=== PATIENT | female | born 1940 | race African-American/Black ===

== ENCOUNTER 2017-05-23 08:20 | Emergency (ER) | payer MEDICARE, OTHER ==
[~2017-05-23] VITALS: Ht 167.6 cm; Wt 100.0 kg
[~2017-05-23 08:20] MED LIST: AMLO-512 PO; ASPI-556 PO; ATOR40TA71 PO; CLON-570 PO; GLIP5 PO; LABE100 PO; LOSA50TA37 PO; MULT-12 PO; OMEP20CA10 PO
[2017-05-23 08:37] LABS: GLUCOSE,POINT OF CARE 120 MG/DL (70-110)
[2017-05-23 09:21] LABS: INFLUENZA TYPE B NEGATIVE FOR TYPE B (NEGATIVE)
[2017-05-23 11:49] VITALS: BP 186/82
== END 2017-05-23 11:57 | disposition home or self-care (01) ==
LOC: EMS 08:21
DX: J40 Bronchitis, not specified as acute or chronic (principal); E11.9 Type 2 diabetes mellitus without complications; I10 Essential (primary) hypertension; K21.9 Gastro-esophageal reflux disease without esophagitis; Z88.2 Allergy status to sulfonamides
CPT/HCPCS: 82962; 87804; 99285

== ENCOUNTER 2019-06-06 16:24 | Inpatient (IN) | payer MEDICARE, OTHER ==
[~2019-06-06] VITALS: Ht 167.6 cm; Wt 99.8 kg
[~2019-06-06 16:24] MED LIST changes: -AMLO-512 PO; +AMLO10TA7 PO; +AMOX1TAB16 PO; +CALC60CR5 TP; -CLON-570 PO; +DICY10 PO; +DOCU100C33 PO; +FERR325T22 PO; +FURO40 PO; -GLIP5 PO; +HYDR-2924 PO; +INS7030 SQ; -LABE100 PO; +LABE100T8 PO; +LOSA-88 PO; -LOSA50TA37 PO; +NIFE-39 PO; -OMEP20CA10 PO; +ONDA-104 PO; +OXYB5 PO; +PANT40TA25 PO; +PREG75 PO; +SODI650T PO; +TRAM50TA4 PO
[2019-06-06] MEDS ORDERED: DEXTROSE 50%-WATER 25 GM/50 ML SYRINGE IVP PRN (17:00)
[2019-06-06] MEDS: ONDANSETRON HCL 4 MG/2 ML VIAL IVP PRN (18:05)
[2019-06-06] MEDS: ALBUTEROL SULFATE 2.5 MG/0.5 ML NEB SOLUTION NEB PRN (19:19)
[2019-06-06] MEDS: IPRATROPIUM BROMIDE 0.5 MG/2.5 ML NEB SOLUTION NEB PRN (19:19)
[2019-06-06 19:22] VITALS: BP 133/58
[2019-06-06] MEDS ORDERED: SODIUM CHLORIDE 0.9% 0 ML IV ONE (19:26)
[2019-06-06 19:28] LABS: GLUCOMETER DEV NAME(LOC) 2WR.1C; GLUCOSE,POINT OF CARE 128 MG/DL (70-110)
[2019-06-06] MEDS ORDERED: PNEUMOCOCCAL VACCINE POLYVALENT 0.5 ML VIAL [PPSV23] IM ONE (19:30)
[2019-06-06] MEDS: GuaiFENesin/D-METHORPHAN [SUGAR-FREE] 200-20MG/10 ML SYRUP UDCUP PO PRN (19:46)
[2019-06-06] MEDS: OXYGEN THERAPY IH SCH (20:54)
[2019-06-06] MEDS: LABETALOL HCL 100 MG TABLET PO SCH (21:00)
[2019-06-06] MEDS ORDERED: HydrALAZINE HCL 50 MG TABLET PO SCH (21:00)
[2019-06-06] MEDS: OMEPRAZOLE 20 MG CAPSULE PO SCH (21:06)
[2019-06-06] MEDS: NIFEdipine 60 MG ER TABLET PO SCH (21:06)
[2019-06-06] MEDS: SODIUM BICARBONATE 650 MG TABLET PO SCH (21:06)
[2019-06-06] MEDS: ATORVASTATIN CALCIUM 40 MG TABLET PO SCH (21:06)
[2019-06-06] MEDS: FUROSEMIDE 40 MG TABLET PO SCH (21:07)
[2019-06-06] MEDS: DICYCLOMINE HCL 10 MG CAPSULE PO SCH (21:07)
[2019-06-06] MEDS: SENNA 187 MG TABLET PO SCH (21:07)
[2019-06-06] MEDS: DOCUSATE SODIUM 100 MG CAPSULE PO SCH (21:07)
[2019-06-06] MEDS: HEPARIN SODIUM,PORCINE 5,000 UNITS/ML VIAL SQ SCH (21:12)
[2019-06-06] MEDS: INSULIN HUMAN NPH-REGULAR 70/30 100 UNITS/ML SQ SCH (21:32)
[2019-06-06 22:07] LABS: GLUCOMETER DEV NAME(LOC) 2WR.1C; GLUCOSE,POINT OF CARE 155 MG/DL (70-110)
[2019-06-06] MEDS: 0.9% SODIUM CHLORIDE 10 ML SYRINGE IVP SCH (23:02)
[2019-06-06 23:11] VITALS: BP 150/73
[2019-06-06] MEDS: ACETAMINOPHEN 325 MG TABLET PO PRN (23:11)
[2019-06-07] MEDS: GuaiFENesin/D-METHORPHAN [SUGAR-FREE] 200-20MG/10 ML SYRUP UDCUP PO PRN (05:47)
[2019-06-07 06:01] LABS: GLUCOMETER DEV NAME(LOC) 2WR.2; GLUCOSE,POINT OF CARE 89 MG/DL (70-110)
[2019-06-07] MEDS: ONDANSETRON HCL 4 MG/2 ML VIAL IVP PRN ×3 (07:24→21:24)
[2019-06-07 07:27] LABS: BASOPHILS % (AUTO) 0.4 % (0.0-2.0); EOSINOPHILS % (AUTO) 2.2 % (1.0-6.0); HEMATOCRIT 24.2 % (36-46); HEMOGLOBIN 8.1 g/dL (12.0-16.0); LYMPHOCYTES # (AUTO) 0.7 K/uL (1.0-4.8); LYMPHOCYTES % (AUTO) 7.8 % (22.0-44.0); MEAN CORPUSCULAR HEMOGLOBIN 28.7 pg (26.0-34.0); MEAN CORPUSCULAR HGB CONC 33.6 G/dL (31.0-37.0); MEAN CORPUSCULAR VOLUME 85 fL (80-100); MONOCYTES # (AUTO) 1.1 K/uL (0.1-1.0); MONOCYTES % (AUTO) 13.1 % (2.0-9.0); NEUTROPHILS # (AUTO) 6.5 K/uL (1.8-7.7); NEUTROPHILS % (AUTO) 76.5 % (40.0-70.0); PLATELET COUNT (AUTO) 322 K/uL (150-450); RED BLOOD CELL COUNT(AUTO) 2.83 MIL/uL (4.00-5.20); RED CELL DISTRIBUTION WIDTH 14.2 % (11.5-14.5)
[2019-06-07 07:36] VITALS: BP 136/84
[2019-06-07] MEDS: ACETAMINOPHEN 325 MG TABLET PO PRN ×2 (07:36→23:40)
[2019-06-07 07:47] LABS: ALBUMIN 2.6 g/dL (3.4-5.0); BILIRUBIN,TOTAL 0.3 mg/dL (0.1-1.0); CALCIUM, TOTAL 8.5 mg/dL (8.8-10.5); CREATININE 2.07 mg/dL (0.60-1.30); POTASSIUM 4.8 mmol/L (3.5-5.1); TOTAL PROTEIN, SERUM 6.5 g/dL (6.4-8.2)
[2019-06-07] MEDS: ALBUTEROL SULFATE 2.5 MG/0.5 ML NEB SOLUTION NEB PRN ×2 (07:50→20:37)
[2019-06-07] MEDS: IPRATROPIUM BROMIDE 0.5 MG/2.5 ML NEB SOLUTION NEB PRN ×2 (07:50→20:37)
[2019-06-07] MEDS: OXYGEN THERAPY IH SCH ×2 (08:18→21:30)
[2019-06-07] MEDS: HEPARIN SODIUM,PORCINE 5,000 UNITS/ML VIAL SQ SCH ×2 (08:18→21:30)
[2019-06-07] MEDS: HydrALAZINE HCL 25 MG TABLET PO SCH ×3 (08:19→21:29)
[2019-06-07] MEDS: ASPIRIN 81 MG CHEWABLE TABLET PO SCH (08:19)
[2019-06-07] MEDS: SODIUM BICARBONATE 650 MG TABLET PO SCH ×2 (08:19→21:29)
[2019-06-07] MEDS: FUROSEMIDE 40 MG TABLET PO SCH (08:19)
[2019-06-07] MEDS: NIFEdipine 60 MG ER TABLET PO SCH ×2 (08:19→21:29)
[2019-06-07] MEDS: DOCUSATE SODIUM 100 MG CAPSULE PO SCH ×2 (08:19→21:29)
[2019-06-07] MEDS: DICYCLOMINE HCL 10 MG CAPSULE PO SCH ×2 (08:19→13:04)
[2019-06-07] MEDS: LOSARTAN POTASSIUM 50 MG TABLET PO SCH (08:19)
[2019-06-07] MEDS: GABAPENTIN 300 MG CAPSULE PO SCH (08:19)
[2019-06-07] MEDS: 0.9% SODIUM CHLORIDE 10 ML SYRINGE IVP SCH ×3 (08:20→23:17)
[2019-06-07] MEDS: OMEPRAZOLE 20 MG CAPSULE PO SCH ×2 (08:20→21:29)
[2019-06-07] MEDS: LABETALOL HCL 100 MG TABLET PO SCH ×2 (08:22→21:29)
[2019-06-07] MEDS: INSULIN HUMAN NPH-REGULAR 70/30 100 UNITS/ML SQ SCH ×2 (08:34→21:37)
[2019-06-07 13:15] LABS: GLUCOMETER DEV NAME(LOC) 2WR.2; GLUCOSE,POINT OF CARE 66 MG/DL (70-110)
[2019-06-07] MEDS ORDERED: MAGNESIUM HYDROXIDE SUSPENSION 30 ML UDCUP PO PRN (13:15)
[2019-06-07] MEDS ORDERED: FUROSEMIDE 40 MG/4 ML VIAL IVP ONE (15:15)
[2019-06-07 15:23] VITALS: BP 154/71
[2019-06-07] MEDS ORDERED: MAGNESIUM CITRATE 300 ML ORAL SOLUTION PO ONE (16:00)
[2019-06-07 17:04] LABS: GLUCOMETER DEV NAME(LOC) 2WR.2; GLUCOSE,POINT OF CARE 120 MG/DL (70-110)
[2019-06-07] MEDS ORDERED: SODIUM CHLORIDE 0.9% 250 ML IV ONE (17:39)
[2019-06-07] MEDS ORDERED: SOD FERRIC GLUC COMPLX/SUCROSE 125 MG in SODIUM CHLORIDE 0.9% 100 ML IV SCH (18:00)
[2019-06-07 20:07] LABS: GLUCOMETER DEV NAME(LOC) 2WR.2; GLUCOSE,POINT OF CARE 151 MG/DL (70-110)
[2019-06-07 21:00] VITALS: BP 149/76
[2019-06-07] MEDS: SENNA 187 MG TABLET PO SCH (21:29)
[2019-06-07] MEDS: ATORVASTATIN CALCIUM 40 MG TABLET PO SCH (21:29)
[2019-06-07 23:18] LABS: GLUCOMETER DEV NAME(LOC) 2WR.2; GLUCOSE,POINT OF CARE 169 MG/DL (70-110)
[2019-06-07 23:28] VITALS: BP 140/71
[2019-06-07 23:50] VITALS: BP 141/71
[2019-06-08] MEDS: GuaiFENesin/D-METHORPHAN [SUGAR-FREE] 200-20MG/10 ML SYRUP UDCUP PO PRN ×2 (00:23→23:10)
[2019-06-08 06:00] VITALS: BP 128/69
[2019-06-08] MEDS: FUROSEMIDE 40 MG/4 ML VIAL IVP SCH ×2 (06:08→17:00)
[2019-06-08 06:43] LABS: GLUCOMETER DEV NAME(LOC) 2WR.2; GLUCOSE,POINT OF CARE 108 MG/DL (70-110)
[2019-06-08 07:45] VITALS: BP 133/61
[2019-06-08] MEDS: DOCUSATE SODIUM 100 MG CAPSULE PO SCH ×2 (08:25→21:10)
[2019-06-08] MEDS: LOSARTAN POTASSIUM 50 MG TABLET PO SCH (08:25)
[2019-06-08] MEDS: ASPIRIN 81 MG CHEWABLE TABLET PO SCH (08:25)
[2019-06-08] MEDS: HydrALAZINE HCL 25 MG TABLET PO SCH ×3 (08:25→21:10)
[2019-06-08] MEDS: NIFEdipine 60 MG ER TABLET PO SCH ×2 (08:25→21:11)
[2019-06-08] MEDS: SODIUM BICARBONATE 650 MG TABLET PO SCH ×2 (08:25→21:10)
[2019-06-08] MEDS: GABAPENTIN 300 MG CAPSULE PO SCH (08:25)
[2019-06-08] MEDS: LABETALOL HCL 100 MG TABLET PO SCH ×2 (08:25→21:10)
[2019-06-08] MEDS: HEPARIN SODIUM,PORCINE 5,000 UNITS/ML VIAL SQ SCH ×2 (08:26→21:10)
[2019-06-08] MEDS: INSULIN HUMAN NPH-REGULAR 70/30 100 UNITS/ML SQ SCH ×2 (08:28→21:13)
[2019-06-08] MEDS: 0.9% SODIUM CHLORIDE 10 ML SYRINGE IVP SCH ×3 (08:29→23:11)
[2019-06-08] MEDS: OXYGEN THERAPY IH SCH ×2 (08:29→22:23)
[2019-06-08] MEDS: OMEPRAZOLE 20 MG CAPSULE PO SCH ×2 (08:36→21:10)
[2019-06-08] MEDS ORDERED: EPOETIN ALFA 10,000 UNITS/ML VIAL SQ ONE (09:00)
[2019-06-08] MEDS: VITAMIN B COMP/VIT C/FOLIC ACID CAPSULE PO SCH (10:01)
[2019-06-08 11:46] LABS: BASOPHILS % (AUTO) 0.4 % (0.0-2.0); EOSINOPHILS % (AUTO) 0.4 % (1.0-6.0); HEMATOCRIT 23.1 % (36-46); HEMOGLOBIN 7.6 g/dL (12.0-16.0); LYMPHOCYTES # (AUTO) 0.4 K/uL (1.0-4.8); LYMPHOCYTES % (AUTO) 3.4 % (22.0-44.0); MEAN CORPUSCULAR HEMOGLOBIN 28.6 pg (26.0-34.0); MEAN CORPUSCULAR VOLUME 87 fL (80-100); MONOCYTES # (AUTO) 1.4 K/uL (0.1-1.0); MONOCYTES % (AUTO) 10.8 % (2.0-9.0); NEUTROPHILS # (AUTO) 11.1 K/uL (1.8-7.7); PLATELET COUNT (AUTO) 291 K/uL (150-450); RED BLOOD CELL COUNT(AUTO) 2.67 MIL/uL (4.00-5.20); RED CELL DISTRIBUTION WIDTH 14.5 % (11.5-14.5)
[2019-06-08 12:35] LABS: GLUCOMETER DEV NAME(LOC) 2WR.2; GLUCOSE,POINT OF CARE 96 MG/DL (70-110)
[2019-06-08 13:01] LABS: LACTIC ACID 0.6 mmol/L (0.4-2.0)
[2019-06-08 15:35] VITALS: BP 120/51
[2019-06-08] MEDS: ALBUTEROL SULFATE 2.5 MG/0.5 ML NEB SOLUTION NEB PRN (17:50)
[2019-06-08] MEDS: IPRATROPIUM BROMIDE 0.5 MG/2.5 ML NEB SOLUTION NEB PRN (17:50)
[2019-06-08 18:07] LABS: GLUCOMETER DEV NAME(LOC) 2WR.1C; GLUCOSE,POINT OF CARE 110 MG/DL (70-110)
[2019-06-08] MEDS: LACTULOSE 20 GM/30 ML SOLUTION UDCUP PO PRN (18:14)
[2019-06-08] MEDS: PIPERACILLIN SODIUM/TAZOBACTAM 2.25 GM in DEXTROSE 5%-WATER 50 ML IV SCH ×2 (18:28→23:11)
[2019-06-08] MEDS: ATORVASTATIN CALCIUM 40 MG TABLET PO SCH (21:10)
[2019-06-08] MEDS: SENNA 187 MG TABLET PO SCH (21:10)
[2019-06-08] MEDS: ONDANSETRON HCL 4 MG/2 ML VIAL IVP PRN (21:11)
[2019-06-08 22:09] LABS: GLUCOMETER DEV NAME(LOC) 2WR.2; GLUCOSE,POINT OF CARE 172 MG/DL (70-110)
[2019-06-08] MEDS: ACETAMINOPHEN 325 MG TABLET PO PRN (22:46)
[2019-06-08 23:46] VITALS: BP 121/62
[2019-06-09 05:00] VITALS: BP 125/60
[2019-06-09] MEDS: FUROSEMIDE 40 MG/4 ML VIAL IVP SCH (05:04)
[2019-06-09] MEDS: PIPERACILLIN SODIUM/TAZOBACTAM 2.25 GM in DEXTROSE 5%-WATER 50 ML IV SCH ×3 (05:04→18:00)
[2019-06-09 06:28] LABS: GLUCOMETER DEV NAME(LOC) 2WR.1C; GLUCOSE,POINT OF CARE 129 MG/DL (70-110)
[2019-06-09 07:03] VITALS: BP 113/59
[2019-06-09] MEDS: ACETAMINOPHEN 325 MG TABLET PO PRN ×2 (07:03→16:14)
[2019-06-09 07:53] LABS: BASOPHILS % (AUTO) 0.4 % (0.0-2.0); EOSINOPHILS % (AUTO) 1.6 % (1.0-6.0); HEMATOCRIT 22.5 % (36-46); HEMOGLOBIN 7.4 g/dL (12.0-16.0); LYMPHOCYTES # (AUTO) 0.7 K/uL (1.0-4.8); LYMPHOCYTES % (AUTO) 6.1 % (22.0-44.0); MEAN CORPUSCULAR HEMOGLOBIN 28.5 pg (26.0-34.0); MEAN CORPUSCULAR VOLUME 86 fL (80-100); MONOCYTES # (AUTO) 1.3 K/uL (0.1-1.0); MONOCYTES % (AUTO) 11.5 % (2.0-9.0); NEUTROPHILS # (AUTO) 8.8 K/uL (1.8-7.7); NEUTROPHILS % (AUTO) 80.4 % (40.0-70.0); PLATELET COUNT (AUTO) 306 K/uL (150-450); RED BLOOD CELL COUNT(AUTO) 2.61 MIL/uL (4.00-5.20); RED CELL DISTRIBUTION WIDTH 14.6 % (11.5-14.5)
[2019-06-09 08:05] LABS: CALCIUM, TOTAL 8.9 mg/dL (8.8-10.5); CREATININE 2.71 mg/dL (0.60-1.30); POTASSIUM 4.6 mmol/L (3.5-5.1)
[2019-06-09] MEDS: VITAMIN B COMP/VIT C/FOLIC ACID CAPSULE PO SCH (08:24)
[2019-06-09] MEDS: SODIUM BICARBONATE 650 MG TABLET PO SCH (08:24)
[2019-06-09] MEDS: ASPIRIN 81 MG CHEWABLE TABLET PO SCH (08:25)
[2019-06-09] MEDS: LOSARTAN POTASSIUM 50 MG TABLET PO SCH (08:25)
[2019-06-09] MEDS: DOCUSATE SODIUM 100 MG CAPSULE PO SCH ×2 (08:25→21:10)
[2019-06-09] MEDS: OMEPRAZOLE 20 MG CAPSULE PO SCH ×2 (08:25→21:10)
[2019-06-09] MEDS: LABETALOL HCL 100 MG TABLET PO SCH ×2 (08:25→21:09)
[2019-06-09] MEDS: HEPARIN SODIUM,PORCINE 5,000 UNITS/ML VIAL SQ SCH ×2 (08:26→21:11)
[2019-06-09] MEDS: INSULIN HUMAN NPH-REGULAR 70/30 100 UNITS/ML SQ SCH ×2 (08:27→21:11)
[2019-06-09] MEDS: 0.9% SODIUM CHLORIDE 10 ML SYRINGE IVP SCH ×2 (08:35→16:15)
[2019-06-09] MEDS: OXYGEN THERAPY IH SCH ×2 (08:35→19:30)
[2019-06-09] MEDS ORDERED: FUROSEMIDE 40 MG/4 ML VIAL IVP SCH (09:00)
[2019-06-09] MEDS: NIFEdipine 60 MG ER TABLET PO SCH ×2 (10:19→21:10)
[2019-06-09] MEDS: HydrALAZINE HCL 25 MG TABLET PO SCH ×3 (10:19→21:09)
[2019-06-09 10:31] VITALS: BP 132/62
[2019-06-09] MEDS: GuaiFENesin/D-METHORPHAN [SUGAR-FREE] 200-20MG/10 ML SYRUP UDCUP PO PRN ×2 (12:21→21:51)
[2019-06-09] MEDS: TraMADol HCL 50 MG TABLET PO PRN (12:42)
[2019-06-09] MEDS ORDERED: EPOETIN ALFA 10,000 UNITS/ML VIAL SQ ONE (12:45)
[2019-06-09 12:50] LABS: GLUCOMETER DEV NAME(LOC) 2WR.2; GLUCOSE,POINT OF CARE 144 MG/DL (70-110)
[2019-06-09 15:30] VITALS: BP 133/69
[2019-06-09] MEDS: BETHANECHOL CHLORIDE 10 MG TABLET PO SCH ×2 (16:15→21:10)
[2019-06-09] MEDS: SIMETHICONE 80 MG CHEWABLE TABLET CHEW PRN (17:32)
[2019-06-09 18:43] LABS: GLUCOMETER DEV NAME(LOC) 2WR.1C; GLUCOSE,POINT OF CARE 90 MG/DL (70-110)
[2019-06-09] MEDS ORDERED: 0.9% SODIUM CHLORIDE 5 ML NEB SOLUTION NEB ONE (19:24)
[2019-06-09] MEDS: IPRATROPIUM BROMIDE 0.5 MG/2.5 ML NEB SOLUTION NEB PRN (19:29)
[2019-06-09] MEDS: ALBUTEROL SULFATE 2.5 MG/0.5 ML NEB SOLUTION NEB PRN (19:29)
[2019-06-09 21:08] VITALS: BP 144/73
[2019-06-09] MEDS: TAMSULOSIN HCL 0.4 MG CAPSULE PO SCH (21:10)
[2019-06-09] MEDS: ATORVASTATIN CALCIUM 40 MG TABLET PO SCH (21:10)
[2019-06-09] MEDS: SENNA 187 MG TABLET PO SCH (21:10)
[2019-06-09] MEDS: LACTULOSE 20 GM/30 ML SOLUTION UDCUP PO PRN (21:11)
[2019-06-09 21:24] LABS: APPEARANCE,URINE TURBID (CLEAR); BILIRUBIN,URINE NEGATIVE (NEGATIVE); GLUCOSE, URINE (UA) NEGATIVE (NEGATIVE); KETONES,URINE NEGATIVE (NEGATIVE); LEUKOCYTE ESTERASE ,URINE LARGE (NEGATIVE); NITRATE,URINE NEGATIVE (NEGATIVE); OCCULT BLOOD,URINE SMALL (NEGATIVE); PH,URINE 6.5 (5.0-8.0); PROTEIN,URINE SEE CONFIRM (NEGATIVE); UROBILINOGEN,URINE 0.2 mg/dL (<=1.0)
[2019-06-09 21:31] LABS: SULFOSALICYLIC ACID,URINE 3+ (Negative); WBC,URINE >100 /HPF (0-5)
[2019-06-09 21:32] LABS: BACTERIA,URINE Moderate /HPF (None Seen); RBC,URINE 0-2 /HPF (0-2)
[2019-06-09 21:33] LABS: SQUAMOUS EPITHELIAL CELL,UR Few /LPF (None Seen)
[2019-06-09 21:41] LABS: GLUCOMETER DEV NAME(LOC) 2WR.2; GLUCOSE,POINT OF CARE 186 MG/DL (70-110)
[2019-06-10] VITALS (16 sets, daily range): BP systolic 108–178; BP diastolic 51–99
[2019-06-10] MEDS: GuaiFENesin/D-METHORPHAN [SUGAR-FREE] 200-20MG/10 ML SYRUP UDCUP PO PRN ×2 (01:45→23:58)
[2019-06-10] MEDS: ACETAMINOPHEN 325 MG TABLET PO PRN ×3 (01:45→23:58)
[2019-06-10] MEDS: PIPERACILLIN SODIUM/TAZOBACTAM 2.25 GM in DEXTROSE 5%-WATER 50 ML IV SCH ×4 (03:26→21:43)
[2019-06-10] MEDS: 0.9% SODIUM CHLORIDE 10 ML SYRINGE IVP SCH ×4 (03:27→23:59)
[2019-06-10 05:24] LABS: GLUCOMETER DEV NAME(LOC) 2WR.1C; GLUCOSE,POINT OF CARE 167 MG/DL (70-110)
[2019-06-10] MEDS: FUROSEMIDE 40 MG/4 ML VIAL IVP SCH (05:34)
[2019-06-10 07:12] LABS: BASOPHILS % (AUTO) 0.8 % (0.0-2.0); EOSINOPHILS % (AUTO) 3.1 % (1.0-6.0); HEMATOCRIT 21.6 % (36-46); HEMOGLOBIN 7.3 g/dL (12.0-16.0); LYMPHOCYTES # (AUTO) 0.5 K/uL (1.0-4.8); LYMPHOCYTES % (AUTO) 4.6 % (22.0-44.0); MEAN CORPUSCULAR HGB CONC 33.9 G/dL (31.0-37.0); MEAN CORPUSCULAR VOLUME 86 fL (80-100); MONOCYTES # (AUTO) 1.1 K/uL (0.1-1.0); MONOCYTES % (AUTO) 11.1 % (2.0-9.0); NEUTROPHILS # (AUTO) 8.2 K/uL (1.8-7.7); NEUTROPHILS % (AUTO) 80.4 % (40.0-70.0); PLATELET COUNT (AUTO) 309 K/uL (150-450); RED BLOOD CELL COUNT(AUTO) 2.52 MIL/uL (4.00-5.20); RED CELL DISTRIBUTION WIDTH 14.8 % (11.5-14.5)
[2019-06-10 07:28] LABS: CALCIUM, TOTAL 8.4 mg/dL (8.8-10.5); CREATININE 2.65 mg/dL (0.60-1.30); POTASSIUM 4.3 mmol/L (3.5-5.1)
[2019-06-10] MEDS: ONDANSETRON HCL 4 MG/2 ML VIAL IVP PRN (07:47)
[2019-06-10] MEDS: OMEPRAZOLE 20 MG CAPSULE PO SCH ×2 (07:49→21:44)
[2019-06-10] MEDS: BETHANECHOL CHLORIDE 10 MG TABLET PO SCH ×3 (07:50→21:44)
[2019-06-10] MEDS: LABETALOL HCL 100 MG TABLET PO SCH ×2 (07:50→21:43)
[2019-06-10] MEDS: HydrALAZINE HCL 25 MG TABLET PO SCH ×3 (07:50→21:44)
[2019-06-10] MEDS: DOCUSATE SODIUM 100 MG CAPSULE PO SCH ×2 (07:50→21:44)
[2019-06-10] MEDS: VITAMIN B COMP/VIT C/FOLIC ACID CAPSULE PO SCH (07:51)
[2019-06-10] MEDS: ASPIRIN 81 MG CHEWABLE TABLET PO SCH (07:51)
[2019-06-10] MEDS: HEPARIN SODIUM,PORCINE 5,000 UNITS/ML VIAL SQ SCH ×2 (07:51→21:53)
[2019-06-10] MEDS: NIFEdipine 60 MG ER TABLET PO SCH ×2 (07:51→21:43)
[2019-06-10] MEDS: INSULIN HUMAN NPH-REGULAR 70/30 100 UNITS/ML SQ SCH ×2 (08:02→21:57)
[2019-06-10] MEDS: INSULIN LISPRO 100 UNITS/ML SQ PRN (08:03)
[2019-06-10] MEDS: OXYGEN THERAPY IH SCH ×2 (08:06→21:42)
[2019-06-10] MEDS: IPRATROPIUM BROMIDE 0.5 MG/2.5 ML NEB SOLUTION NEB PRN ×2 (09:45→19:44)
[2019-06-10] MEDS: ALBUTEROL SULFATE 2.5 MG/0.5 ML NEB SOLUTION NEB PRN ×2 (09:45→19:44)
[2019-06-10] MEDS ORDERED: SODIUM CHLORIDE 0.9% 500 ML IV ONE (12:39)
[2019-06-10] MEDS ORDERED: SODIUM CHLORIDE 0.9% 1,000 ML ONE (14:54)
[2019-06-10] MEDS ORDERED: CloNIDine HCL 0.1 MG TABLET PO PRN (17:15)
[2019-06-10] MEDS ORDERED: HydrALAZINE HCL 20 MG/ML VIAL IVP PRN (17:15)
[2019-06-10 18:04] LABS: GLUCOMETER DEV NAME(LOC) 2WR.2; GLUCOSE,POINT OF CARE 110 MG/DL (70-110)
[2019-06-10 18:04] LABS: GLUCOMETER DEV NAME(LOC) 2WR.2; GLUCOSE,POINT OF CARE 78 MG/DL (70-110)
[2019-06-10] MEDS: LACTULOSE 20 GM/30 ML SOLUTION UDCUP PO PRN (18:53)
[2019-06-10] MEDS: SIMETHICONE 80 MG CHEWABLE TABLET CHEW PRN (21:43)
[2019-06-10] MEDS: TAMSULOSIN HCL 0.4 MG CAPSULE PO SCH (21:43)
[2019-06-10] MEDS: SENNA 187 MG TABLET PO SCH (21:43)
[2019-06-10] MEDS: ATORVASTATIN CALCIUM 40 MG TABLET PO SCH (21:44)
[2019-06-10 22:22] LABS: GLUCOMETER DEV NAME(LOC) 2WR.2; GLUCOSE,POINT OF CARE 95 MG/DL (70-110)
[2019-06-10 22:22] LABS: GLUCOMETER DEV NAME(LOC) 2WR.2; GLUCOSE,POINT OF CARE 175 MG/DL (70-110)
[2019-06-11] MEDS: PIPERACILLIN SODIUM/TAZOBACTAM 2.25 GM in DEXTROSE 5%-WATER 50 ML IV SCH ×4 (03:11→20:31)
[2019-06-11] MEDS: FUROSEMIDE 40 MG/4 ML VIAL IVP SCH (05:12)
[2019-06-11 06:32] LABS: GLUCOMETER DEV NAME(LOC) 2WR.1C; GLUCOSE,POINT OF CARE 70 MG/DL (70-110)
[2019-06-11] MEDS: IPRATROPIUM BROMIDE 0.5 MG/2.5 ML NEB SOLUTION NEB PRN (07:21)
[2019-06-11] MEDS: ALBUTEROL SULFATE 2.5 MG/0.5 ML NEB SOLUTION NEB PRN (07:21)
[2019-06-11 07:33] LABS: BASOPHILS % (AUTO) 0.5 % (0.0-2.0); EOSINOPHILS % (AUTO) 3.8 % (1.0-6.0); HEMATOCRIT 26.2 % (36-46); HEMOGLOBIN 8.9 g/dL (12.0-16.0); LYMPHOCYTES # (AUTO) 0.6 K/uL (1.0-4.8); LYMPHOCYTES % (AUTO) 5.4 % (22.0-44.0); MEAN CORPUSCULAR HEMOGLOBIN 29.3 pg (26.0-34.0); MEAN CORPUSCULAR HGB CONC 33.9 G/dL (31.0-37.0); MEAN CORPUSCULAR VOLUME 86 fL (80-100); MONOCYTES # (AUTO) 1.3 K/uL (0.1-1.0); MONOCYTES % (AUTO) 12.1 % (2.0-9.0); NEUTROPHILS # (AUTO) 8.1 K/uL (1.8-7.7); NEUTROPHILS % (AUTO) 78.2 % (40.0-70.0); PLATELET COUNT (AUTO) 350 K/uL (150-450); RED BLOOD CELL COUNT(AUTO) 3.03 MIL/uL (4.00-5.20); RED CELL DISTRIBUTION WIDTH 14.8 % (11.5-14.5)
[2019-06-11 07:52] VITALS: BP 153/76
[2019-06-11 07:55] LABS: ALBUMIN 2.6 g/dL (3.4-5.0); BILIRUBIN,TOTAL 0.8 mg/dL (0.1-1.0); CALCIUM, TOTAL 8.8 mg/dL (8.8-10.5); CREATININE 2.32 mg/dL (0.60-1.30); POTASSIUM 3.8 mmol/L (3.5-5.1); TOTAL PROTEIN, SERUM 7.3 g/dL (6.4-8.2)
[2019-06-11] MEDS: OXYGEN THERAPY IH SCH ×2 (09:11→20:21)
[2019-06-11] MEDS: 0.9% SODIUM CHLORIDE 10 ML SYRINGE IVP SCH ×3 (09:11→23:09)
[2019-06-11] MEDS: DOCUSATE SODIUM 100 MG CAPSULE PO SCH ×2 (09:12→20:32)
[2019-06-11] MEDS: HydrALAZINE HCL 25 MG TABLET PO SCH ×3 (09:12→20:31)
[2019-06-11] MEDS: VITAMIN B COMP/VIT C/FOLIC ACID CAPSULE PO SCH (09:12)
[2019-06-11] MEDS: LABETALOL HCL 100 MG TABLET PO SCH ×2 (09:12→20:32)
[2019-06-11] MEDS: ONDANSETRON HCL 4 MG/2 ML VIAL IVP PRN (09:12)
[2019-06-11] MEDS: NIFEdipine 60 MG ER TABLET PO SCH ×2 (09:12→20:32)
[2019-06-11] MEDS: ASPIRIN 81 MG CHEWABLE TABLET PO SCH (09:13)
[2019-06-11] MEDS: OMEPRAZOLE 20 MG CAPSULE PO SCH ×2 (09:13→20:32)
[2019-06-11] MEDS: BETHANECHOL CHLORIDE 10 MG TABLET PO SCH ×3 (09:13→20:32)
[2019-06-11] MEDS: HEPARIN SODIUM,PORCINE 5,000 UNITS/ML VIAL SQ SCH ×2 (09:14→20:33)
[2019-06-11] MEDS: INSULIN HUMAN NPH-REGULAR 70/30 100 UNITS/ML SQ SCH ×2 (09:16→20:39)
[2019-06-11] MEDS: INSULIN LISPRO 100 UNITS/ML SQ PRN (12:34)
[2019-06-11] MEDS: ACETAMINOPHEN 325 MG TABLET PO PRN (12:37)
[2019-06-11 17:46] VITALS: BP 146/70
[2019-06-11 19:15] VITALS: BP 157/72
[2019-06-11 19:30] VITALS: BP 154/72
[2019-06-11] MEDS ORDERED: NITROGLYCERIN 0.4 MG SUBLINGUAL TABLET #25 SL PRN (19:30)
[2019-06-11 19:37] LABS: GLUCOMETER DEV NAME(LOC) 2WR.1C; GLUCOSE,POINT OF CARE 214 MG/DL (70-110)
[2019-06-11 19:51] LABS: GLUCOMETER DEV NAME(LOC) 2WR.2; GLUCOSE,POINT OF CARE 40 MG/DL (70-110)
[2019-06-11 19:51] LABS: GLUCOMETER DEV NAME(LOC) 2WR.2; GLUCOSE,POINT OF CARE 78 MG/DL (70-110)
[2019-06-11 19:51] LABS: GLUCOMETER DEV NAME(LOC) 2WR.2; GLUCOSE,POINT OF CARE 173 MG/DL (70-110)
[2019-06-11 20:31] VITALS: BP 158/74
[2019-06-11] MEDS: TraMADol HCL 50 MG TABLET PO PRN (20:31)
[2019-06-11] MEDS: SENNA 187 MG TABLET PO SCH (20:32)
[2019-06-11] MEDS: ATORVASTATIN CALCIUM 40 MG TABLET PO SCH (20:32)
[2019-06-11] MEDS: TAMSULOSIN HCL 0.4 MG CAPSULE PO SCH (20:33)
[2019-06-11] MEDS ORDERED: SODIUM CHLORIDE 0.9% 250 ML IV ONE (20:44)
[2019-06-11] MEDS: LACTULOSE 20 GM/30 ML SOLUTION UDCUP PO PRN (21:37)
[2019-06-11 22:42] LABS: GLUCOMETER DEV NAME(LOC) 2WR.1C; GLUCOSE,POINT OF CARE 224 MG/DL (70-110)
[2019-06-11 22:42] LABS: GLUCOMETER DEV NAME(LOC) 2WR.1C; GLUCOSE,POINT OF CARE 202 MG/DL (70-110)
[2019-06-11 23:00] VITALS: BP 145/65
[2019-06-12] MEDS: GuaiFENesin/D-METHORPHAN [SUGAR-FREE] 200-20MG/10 ML SYRUP UDCUP PO PRN (03:13)
[2019-06-12] MEDS: PIPERACILLIN SODIUM/TAZOBACTAM 2.25 GM in DEXTROSE 5%-WATER 50 ML IV SCH ×3 (03:13→15:16)
[2019-06-12 03:53] LABS: GLUCOMETER DEV NAME(LOC) 2WR.1C; GLUCOSE,POINT OF CARE 236 MG/DL (70-110)
[2019-06-12] MEDS: FUROSEMIDE 40 MG/4 ML VIAL IVP SCH ×2 (05:06→21:12)
[2019-06-12 06:37] LABS: GLUCOMETER DEV NAME(LOC) 2WR.2; GLUCOSE,POINT OF CARE 144 MG/DL (70-110)
[2019-06-12 06:40] LABS: BASOPHILS % (AUTO) 0.6 % (0.0-2.0); EOSINOPHILS % (AUTO) 5.3 % (1.0-6.0); HEMATOCRIT 26.3 % (36-46); HEMOGLOBIN 8.8 g/dL (12.0-16.0); LYMPHOCYTES # (AUTO) 0.7 K/uL (1.0-4.8); LYMPHOCYTES % (AUTO) 7.8 % (22.0-44.0); MEAN CORPUSCULAR HGB CONC 33.4 G/dL (31.0-37.0); MEAN CORPUSCULAR VOLUME 87 fL (80-100); MONOCYTES # (AUTO) 1.1 K/uL (0.1-1.0); NEUTROPHILS % (AUTO) 74.3 % (40.0-70.0); PLATELET COUNT (AUTO) 357 K/uL (150-450); RED BLOOD CELL COUNT(AUTO) 3.04 MIL/uL (4.00-5.20); RED CELL DISTRIBUTION WIDTH 15.1 % (11.5-14.5)
[2019-06-12 06:59] LABS: ALBUMIN 2.6 g/dL (3.4-5.0); BILIRUBIN,TOTAL 0.6 mg/dL (0.1-1.0); CALCIUM, TOTAL 8.9 mg/dL (8.8-10.5); CREATININE 1.95 mg/dL (0.60-1.30); POTASSIUM 3.8 mmol/L (3.5-5.1); TOTAL PROTEIN, SERUM 7.4 g/dL (6.4-8.2)
[2019-06-12 07:15] VITALS: BP 156/70
[2019-06-12] MEDS: DOCUSATE SODIUM 100 MG CAPSULE PO SCH ×2 (08:16→21:07)
[2019-06-12] MEDS: ASPIRIN 81 MG CHEWABLE TABLET PO SCH (08:16)
[2019-06-12] MEDS: HydrALAZINE HCL 25 MG TABLET PO SCH ×3 (08:16→21:07)
[2019-06-12] MEDS: HEPARIN SODIUM,PORCINE 5,000 UNITS/ML VIAL SQ SCH ×2 (08:16→21:12)
[2019-06-12] MEDS: VITAMIN B COMP/VIT C/FOLIC ACID CAPSULE PO SCH (08:16)
[2019-06-12] MEDS: LABETALOL HCL 100 MG TABLET PO SCH ×2 (08:17→21:08)
[2019-06-12] MEDS: BETHANECHOL CHLORIDE 10 MG TABLET PO SCH ×3 (08:17→21:08)
[2019-06-12] MEDS: NIFEdipine 60 MG ER TABLET PO SCH ×2 (08:18→21:08)
[2019-06-12] MEDS: OMEPRAZOLE 20 MG CAPSULE PO SCH ×2 (08:18→21:08)
[2019-06-12] MEDS: 0.9% SODIUM CHLORIDE 10 ML SYRINGE IVP SCH ×3 (08:28→23:08)
[2019-06-12] MEDS: INSULIN LISPRO 100 UNITS/ML SQ PRN ×3 (08:28→21:30)
[2019-06-12] MEDS: INSULIN HUMAN NPH-REGULAR 70/30 100 UNITS/ML SQ SCH ×2 (08:29→21:29)
[2019-06-12] MEDS: OXYGEN THERAPY IH SCH ×2 (08:30→21:12)
[2019-06-12] MEDS: TraMADol HCL 50 MG TABLET PO PRN ×2 (08:39→18:56)
[2019-06-12] MEDS: ONDANSETRON HCL 4 MG/2 ML VIAL IVP PRN (09:59)
[2019-06-12 11:08] LABS: CREATININE,URINE RANDOM 30.8 mg/dL (30.0-125.0)
[2019-06-12] MEDS: ISOSORBIDE MONONITRATE 30 MG ER TABLET PO SCH (11:10)
[2019-06-12] MEDS: ACETAMINOPHEN 325 MG TABLET PO PRN ×2 (11:11→21:08)
[2019-06-12] MEDS ORDERED: SODIUM CHLORIDE 0.9% 250 ML IV ONE (14:32)
[2019-06-12 15:58] VITALS: BP 137/67
[2019-06-12 17:43] LABS: GLUCOMETER DEV NAME(LOC) 2WR.2; GLUCOSE,POINT OF CARE 110 MG/DL (70-110)
[2019-06-12] MEDS: LACTULOSE 20 GM/30 ML SOLUTION UDCUP PO PRN (19:01)
[2019-06-12] MEDS: TAMSULOSIN HCL 0.4 MG CAPSULE PO SCH (21:07)
[2019-06-12] MEDS: SENNA 187 MG TABLET PO SCH (21:07)
[2019-06-12] MEDS: ATORVASTATIN CALCIUM 40 MG TABLET PO SCH (21:07)
[2019-06-12] MEDS: MELATONIN 3 MG TABLET PO PRN (21:08)
[2019-06-12] MEDS: CefoTEtan DISOD 2 GM/DEXTROSE 50 ML IV SCH (21:12)
[2019-06-12 22:06] LABS: GLUCOMETER DEV NAME(LOC) 2WR.1C; GLUCOSE,POINT OF CARE 184 MG/DL (70-110)
[2019-06-12 22:06] LABS: GLUCOMETER DEV NAME(LOC) 2WR.1C; GLUCOSE,POINT OF CARE 170 MG/DL (70-110)
[2019-06-13] VITALS: BP 142/81
[2019-06-13] MEDS: GuaiFENesin/D-METHORPHAN [SUGAR-FREE] 200-20MG/10 ML SYRUP UDCUP PO PRN (00:36)
[2019-06-13] MEDS: ONDANSETRON HCL 4 MG/2 ML VIAL IVP PRN ×3 (03:24→17:26)
[2019-06-13 06:00] VITALS: BP 144/79
[2019-06-13 06:05] LABS: GLUCOMETER DEV NAME(LOC) 2WR.1C; GLUCOSE,POINT OF CARE 112 MG/DL (70-110)
[2019-06-13] MEDS: HEPARIN SODIUM,PORCINE 5,000 UNITS/ML VIAL SQ SCH ×2 (08:36→21:36)
[2019-06-13] MEDS: OMEPRAZOLE 20 MG CAPSULE PO SCH ×2 (08:36→21:35)
[2019-06-13] MEDS: LABETALOL HCL 100 MG TABLET PO SCH (08:36)
[2019-06-13] MEDS: BETHANECHOL CHLORIDE 10 MG TABLET PO SCH ×3 (08:36→21:35)
[2019-06-13] MEDS: VITAMIN B COMP/VIT C/FOLIC ACID CAPSULE PO SCH (08:37)
[2019-06-13] MEDS: ISOSORBIDE MONONITRATE 30 MG ER TABLET PO SCH (08:37)
[2019-06-13] MEDS: NIFEdipine 60 MG ER TABLET PO SCH ×2 (08:37→21:35)
[2019-06-13] MEDS: HydrALAZINE HCL 25 MG TABLET PO SCH ×3 (08:37→21:35)
[2019-06-13] MEDS: FUROSEMIDE 40 MG/4 ML VIAL IVP SCH ×2 (08:38→21:36)
[2019-06-13] MEDS: ASPIRIN 81 MG CHEWABLE TABLET PO SCH (08:38)
[2019-06-13] MEDS: DOCUSATE SODIUM 100 MG CAPSULE PO SCH ×2 (08:38→21:35)
[2019-06-13] MEDS: 0.9% SODIUM CHLORIDE 10 ML SYRINGE IVP SCH ×3 (08:42→23:40)
[2019-06-13] MEDS: OXYGEN THERAPY IH SCH ×2 (08:42→21:38)
[2019-06-13] MEDS: EPOETIN ALFA 10,000 UNITS/ML VIAL SQ SCH (08:43)
[2019-06-13] MEDS: INSULIN HUMAN NPH-REGULAR 70/30 100 UNITS/ML SQ SCH ×2 (08:46→21:57)
[2019-06-13 09:00] VITALS: BP 153/96
[2019-06-13 09:48] LABS: ALBUMIN 2.5 g/dL (3.4-5.0); BILIRUBIN,TOTAL 0.3 mg/dL (0.1-1.0); CALCIUM, TOTAL 8.6 mg/dL (8.8-10.5); CREATININE 2.02 mg/dL (0.60-1.30); MAGNESIUM 1.8 mg/dL (1.80-2.40); PHOSPHORUS 3.6 mg/dL (2.5-4.9); POTASSIUM 3.9 mmol/L (3.5-5.1); TOTAL PROTEIN, SERUM 7.1 g/dL (6.4-8.2)
[2019-06-13 09:50] LABS: BASOPHILS % (AUTO) 0.9 % (0.0-2.0); EOSINOPHILS % (AUTO) 5.8 % (1.0-6.0); HEMATOCRIT 25.7 % (36-46); HEMOGLOBIN 8.5 g/dL (12.0-16.0); LYMPHOCYTES # (AUTO) 0.7 K/uL (1.0-4.8); LYMPHOCYTES % (AUTO) 8.3 % (22.0-44.0); MEAN CORPUSCULAR HEMOGLOBIN 28.6 pg (26.0-34.0); MEAN CORPUSCULAR VOLUME 87 fL (80-100); MONOCYTES % (AUTO) 12.7 % (2.0-9.0); NEUTROPHILS # (AUTO) 5.8 K/uL (1.8-7.7); NEUTROPHILS % (AUTO) 72.3 % (40.0-70.0); PLATELET COUNT (AUTO) 347 K/uL (150-450); RED BLOOD CELL COUNT(AUTO) 2.96 MIL/uL (4.00-5.20); RED CELL DISTRIBUTION WIDTH 15.1 % (11.5-14.5)
[2019-06-13] MEDS: ACETAMINOPHEN 325 MG TABLET PO PRN ×2 (11:59→22:16)
[2019-06-13 14:02] LABS: GLUCOMETER DEV NAME(LOC) 2WR.2; GLUCOSE,POINT OF CARE 116 MG/DL (70-110)
[2019-06-13 15:20] VITALS: BP 116/60
[2019-06-13] MEDS: TraMADol HCL 50 MG TABLET PO PRN (16:15)
[2019-06-13 19:23] LABS: GLUCOMETER DEV NAME(LOC) 2WR.1C; GLUCOSE,POINT OF CARE 57 MG/DL (70-110)
[2019-06-13 19:23] LABS: GLUCOMETER DEV NAME(LOC) 2WR.1C; GLUCOSE,POINT OF CARE 95 MG/DL (70-110)
[2019-06-13] MEDS: MELATONIN 3 MG TABLET PO PRN (21:35)
[2019-06-13] MEDS: TAMSULOSIN HCL 0.4 MG CAPSULE PO SCH (21:35)
[2019-06-13] MEDS: ATORVASTATIN CALCIUM 40 MG TABLET PO SCH (21:35)
[2019-06-13] MEDS: CefoTEtan DISOD 2 GM/DEXTROSE 50 ML IV SCH (21:36)
[2019-06-13] MEDS: POLYETHYLENE GLYCOL 3350 17 GM PACKET PO SCH (21:36)
[2019-06-13 22:45] LABS: GLUCOMETER DEV NAME(LOC) 2WR.1C; GLUCOSE,POINT OF CARE 194 MG/DL (70-110)
[2019-06-13 23:15] VITALS: BP 128/69
[2019-06-14] MEDS: GuaiFENesin/D-METHORPHAN [SUGAR-FREE] 200-20MG/10 ML SYRUP UDCUP PO PRN ×2 (00:13→23:28)
[2019-06-14] MEDS: ONDANSETRON HCL 4 MG/2 ML VIAL IVP PRN (01:57)
[2019-06-14 06:23] LABS: GLUCOMETER DEV NAME(LOC) 2WR.1C; GLUCOSE,POINT OF CARE 118 MG/DL (70-110)
[2019-06-14 07:00] VITALS: BP 154/75
[2019-06-14] MEDS: INSULIN HUMAN NPH-REGULAR 70/30 100 UNITS/ML SQ SCH ×2 (09:00→20:40)
[2019-06-14] MEDS: TraMADol HCL 50 MG TABLET PO PRN (11:31)
[2019-06-14] MEDS: 0.9% SODIUM CHLORIDE 10 ML SYRINGE IVP SCH ×3 (11:49→23:26)
[2019-06-14] MEDS: OXYGEN THERAPY IH SCH ×2 (11:49→20:28)
[2019-06-14] MEDS: HydrALAZINE HCL 25 MG TABLET PO SCH ×3 (11:50→20:24)
[2019-06-14] MEDS: FUROSEMIDE 40 MG/4 ML VIAL IVP SCH ×2 (11:50→20:27)
[2019-06-14] MEDS: POLYETHYLENE GLYCOL 3350 17 GM PACKET PO SCH ×2 (11:51→20:28)
[2019-06-14] MEDS: OMEPRAZOLE 20 MG CAPSULE PO SCH ×2 (11:51→20:24)
[2019-06-14] MEDS: ISOSORBIDE MONONITRATE 30 MG ER TABLET PO SCH (11:51)
[2019-06-14] MEDS: NIFEdipine 60 MG ER TABLET PO SCH ×2 (11:52→20:24)
[2019-06-14] MEDS: VITAMIN B COMP/VIT C/FOLIC ACID CAPSULE PO SCH (11:52)
[2019-06-14] MEDS: BETHANECHOL CHLORIDE 10 MG TABLET PO SCH ×3 (11:52→20:24)
[2019-06-14] MEDS: DOCUSATE SODIUM 100 MG CAPSULE PO SCH ×2 (11:52→20:24)
[2019-06-14] MEDS: ASPIRIN 81 MG CHEWABLE TABLET PO SCH (11:53)
[2019-06-14] MEDS: HEPARIN SODIUM,PORCINE 5,000 UNITS/ML VIAL SQ SCH ×2 (11:53→20:28)
[2019-06-14 12:48] LABS: GLUCOMETER DEV NAME(LOC) 2WR.2; GLUCOSE,POINT OF CARE 136 MG/DL (70-110)
[2019-06-14 16:11] VITALS: BP 158/90
[2019-06-14 20:12] LABS: GLUCOMETER DEV NAME(LOC) 2WR.2; GLUCOSE,POINT OF CARE 240 MG/DL (70-110)
[2019-06-14 20:12] LABS: GLUCOMETER DEV NAME(LOC) 2WR.2; GLUCOSE,POINT OF CARE 147 MG/DL (70-110)
[2019-06-14] MEDS: ACETAMINOPHEN 325 MG TABLET PO PRN (20:23)
[2019-06-14] MEDS: MELATONIN 3 MG TABLET PO PRN (20:23)
[2019-06-14] MEDS: BusPIRone HCL 5 MG TABLET PO SCH (20:24)
[2019-06-14] MEDS: ATORVASTATIN CALCIUM 40 MG TABLET PO SCH (20:24)
[2019-06-14] MEDS: TAMSULOSIN HCL 0.4 MG CAPSULE PO SCH (20:24)
[2019-06-14] MEDS: CefoTEtan DISOD 2 GM/DEXTROSE 50 ML IV SCH (20:27)
[2019-06-14 20:38] LABS: GLUCOMETER DEV NAME(LOC) 2WR.2; GLUCOSE,POINT OF CARE 220 MG/DL (70-110)
[2019-06-14] MEDS: INSULIN LISPRO 100 UNITS/ML SQ PRN (20:41)
[2019-06-15 00:11] VITALS: BP 137/79
[2019-06-15] MEDS: ONDANSETRON HCL 4 MG/2 ML VIAL IVP PRN (03:55)
[2019-06-15 06:40] LABS: GLUCOMETER DEV NAME(LOC) 2WR.2; GLUCOSE,POINT OF CARE 144 MG/DL (70-110)
[2019-06-15 07:05] VITALS: BP 156/74
[2019-06-15] MEDS: OXYGEN THERAPY IH SCH ×2 (08:06→22:16)
[2019-06-15] MEDS: 0.9% SODIUM CHLORIDE 10 ML SYRINGE IVP SCH ×3 (08:07→23:12)
[2019-06-15] MEDS: HydrALAZINE HCL 25 MG TABLET PO SCH ×3 (08:07→22:13)
[2019-06-15] MEDS: BusPIRone HCL 5 MG TABLET PO SCH ×2 (08:07→22:13)
[2019-06-15] MEDS: BETHANECHOL CHLORIDE 10 MG TABLET PO SCH ×3 (08:08→22:13)
[2019-06-15] MEDS: ESCITALOPRAM OXALATE 10 MG TABLET PO SCH (08:08)
[2019-06-15] MEDS: NIFEdipine 60 MG ER TABLET PO SCH ×2 (08:08→22:13)
[2019-06-15] MEDS: ISOSORBIDE MONONITRATE 30 MG ER TABLET PO SCH (08:08)
[2019-06-15] MEDS: OMEPRAZOLE 20 MG CAPSULE PO SCH ×2 (08:08→22:13)
[2019-06-15] MEDS: VITAMIN B COMP/VIT C/FOLIC ACID CAPSULE PO SCH (08:08)
[2019-06-15] MEDS: ASPIRIN 81 MG CHEWABLE TABLET PO SCH (08:08)
[2019-06-15] MEDS: EPOETIN ALFA 10,000 UNITS/ML VIAL SQ SCH (08:09)
[2019-06-15] MEDS: FUROSEMIDE 40 MG/4 ML VIAL IVP SCH ×4 (08:09→22:13)
[2019-06-15] MEDS: DOCUSATE SODIUM 100 MG CAPSULE PO SCH ×2 (08:10→21:00)
[2019-06-15] MEDS: HEPARIN SODIUM,PORCINE 5,000 UNITS/ML VIAL SQ SCH ×2 (08:10→22:13)
[2019-06-15] MEDS: POLYETHYLENE GLYCOL 3350 17 GM PACKET PO SCH ×2 (08:10→21:00)
[2019-06-15 08:12] LABS: BASOPHILS % (AUTO) 0.8 % (0.0-2.0); EOSINOPHILS % (AUTO) 4.3 % (1.0-6.0); HEMATOCRIT 25.9 % (36-46); LYMPHOCYTES # (AUTO) 0.6 K/uL (1.0-4.8); LYMPHOCYTES % (AUTO) 9.1 % (22.0-44.0); MEAN CORPUSCULAR HEMOGLOBIN 30.3 pg (26.0-34.0); MEAN CORPUSCULAR HGB CONC 34.8 G/dL (31.0-37.0); MEAN CORPUSCULAR VOLUME 87 fL (80-100); MONOCYTES % (AUTO) 14.2 % (2.0-9.0); NEUTROPHILS % (AUTO) 71.6 % (40.0-70.0); PLATELET COUNT (AUTO) 378 K/uL (150-450); RED BLOOD CELL COUNT(AUTO) 2.97 MIL/uL (4.00-5.20); RED CELL DISTRIBUTION WIDTH 15.4 % (11.5-14.5)
[2019-06-15] MEDS: INSULIN LISPRO 100 UNITS/ML SQ PRN ×3 (08:13→22:31)
[2019-06-15] MEDS: INSULIN HUMAN NPH-REGULAR 70/30 100 UNITS/ML SQ SCH ×2 (08:14→22:30)
[2019-06-15 08:26] LABS: CALCIUM, TOTAL 9.1 mg/dL (8.8-10.5); CREATININE 2.01 mg/dL (0.60-1.30); MAGNESIUM 1.8 mg/dL (1.80-2.40)
[2019-06-15] MEDS: ACETAMINOPHEN 325 MG TABLET PO PRN ×2 (09:07→17:00)
[2019-06-15 11:30] VITALS: BP 142/70
[2019-06-15 12:40] LABS: GLUCOMETER DEV NAME(LOC) 2WR.2; GLUCOSE,POINT OF CARE 198 MG/DL (70-110)
[2019-06-15 15:25] VITALS: BP 137/89
[2019-06-15 18:17] LABS: GLUCOMETER DEV NAME(LOC) 2WR.2; GLUCOSE,POINT OF CARE 72 MG/DL (70-110)
[2019-06-15] MEDS: TraMADol HCL 50 MG TABLET PO PRN (18:38)
[2019-06-15 21:30] VITALS: BP 150/77
[2019-06-15] MEDS: CefoTEtan DISOD 2 GM/DEXTROSE 50 ML IV SCH (22:12)
[2019-06-15] MEDS: TAMSULOSIN HCL 0.4 MG CAPSULE PO SCH (22:13)
[2019-06-15] MEDS: ATORVASTATIN CALCIUM 40 MG TABLET PO SCH (22:15)
[2019-06-15 23:05] LABS: GLUCOMETER DEV NAME(LOC) 2WR.2; GLUCOSE,POINT OF CARE 197 MG/DL (70-110)
[2019-06-15 23:20] VITALS: BP 139/67
[2019-06-16] MEDS: ACETAMINOPHEN 325 MG TABLET PO PRN ×2 (00:13→15:45)
[2019-06-16] MEDS: GuaiFENesin/D-METHORPHAN [SUGAR-FREE] 200-20MG/10 ML SYRUP UDCUP PO PRN ×2 (00:13→23:43)
[2019-06-16] MEDS: SIMETHICONE 80 MG CHEWABLE TABLET CHEW PRN ×2 (00:18→23:43)
[2019-06-16] MEDS: ONDANSETRON HCL 4 MG/2 ML VIAL IVP PRN ×2 (04:55→19:53)
[2019-06-16 05:51] LABS: GLUCOMETER DEV NAME(LOC) 2WR.1C; GLUCOSE,POINT OF CARE 127 MG/DL (70-110)
[2019-06-16 07:32] VITALS: BP 134/59
[2019-06-16] MEDS: OXYGEN THERAPY IH SCH ×2 (07:53→21:13)
[2019-06-16] MEDS: OMEPRAZOLE 20 MG CAPSULE PO SCH ×2 (07:55→21:12)
[2019-06-16] MEDS: 0.9% SODIUM CHLORIDE 10 ML SYRINGE IVP SCH ×3 (07:55→23:54)
[2019-06-16] MEDS: HydrALAZINE HCL 25 MG TABLET PO SCH ×3 (07:56→21:12)
[2019-06-16] MEDS: BETHANECHOL CHLORIDE 10 MG TABLET PO SCH ×3 (07:56→21:12)
[2019-06-16] MEDS: DOCUSATE SODIUM 100 MG CAPSULE PO SCH ×3 (07:56→21:00)
[2019-06-16] MEDS: ESCITALOPRAM OXALATE 10 MG TABLET PO SCH (07:56)
[2019-06-16] MEDS: ISOSORBIDE MONONITRATE 30 MG ER TABLET PO SCH (07:57)
[2019-06-16] MEDS: VITAMIN B COMP/VIT C/FOLIC ACID CAPSULE PO SCH (07:57)
[2019-06-16] MEDS: NIFEdipine 60 MG ER TABLET PO SCH ×2 (07:57→21:12)
[2019-06-16] MEDS: BusPIRone HCL 5 MG TABLET PO SCH ×2 (07:57→21:12)
[2019-06-16] MEDS: HEPARIN SODIUM,PORCINE 5,000 UNITS/ML VIAL SQ SCH ×2 (07:57→21:12)
[2019-06-16] MEDS: POLYETHYLENE GLYCOL 3350 17 GM PACKET PO SCH ×3 (07:57→21:00)
[2019-06-16] MEDS: ASPIRIN 81 MG CHEWABLE TABLET PO SCH (07:57)
[2019-06-16] MEDS: INSULIN HUMAN NPH-REGULAR 70/30 100 UNITS/ML SQ SCH ×2 (08:02→21:25)
[2019-06-16] MEDS: FUROSEMIDE 40 MG/4 ML VIAL IVP SCH ×3 (08:35→21:13)
[2019-06-16] MEDS: NYSTATIN 30 GM CREAM TP SCH ×2 (09:34→21:13)
[2019-06-16 15:26] LABS: GLUCOMETER DEV NAME(LOC) 2WR.2; GLUCOSE,POINT OF CARE 138 MG/DL (70-110)
[2019-06-16 15:45] VITALS: BP 152/77
[2019-06-16 17:54] LABS: GLUCOMETER DEV NAME(LOC) 2WR.2; GLUCOSE,POINT OF CARE 90 MG/DL (70-110)
[2019-06-16] MEDS: ATORVASTATIN CALCIUM 40 MG TABLET PO SCH (21:12)
[2019-06-16] MEDS: TAMSULOSIN HCL 0.4 MG CAPSULE PO SCH (21:12)
[2019-06-16] MEDS: CefoTEtan DISOD 2 GM/DEXTROSE 50 ML IV SCH (21:12)
[2019-06-16] MEDS: INSULIN LISPRO 100 UNITS/ML SQ PRN (21:26)
[2019-06-16 21:44] LABS: GLUCOMETER DEV NAME(LOC) 2WR.2; GLUCOSE,POINT OF CARE 189 MG/DL (70-110)
[2019-06-16 23:43] VITALS: BP 141/61
[2019-06-17] MEDS: ONDANSETRON HCL 4 MG/2 ML VIAL IVP PRN ×3 (02:57→18:25)
[2019-06-17 06:27] LABS: GLUCOMETER DEV NAME(LOC) 2WR.1C; GLUCOSE,POINT OF CARE 113 MG/DL (70-110)
[2019-06-17 06:27] LABS: BASOPHILS % (AUTO) 0.6 % (0.0-2.0); EOSINOPHILS % (AUTO) 3.9 % (1.0-6.0); HEMATOCRIT 26.9 % (36-46); LYMPHOCYTES # (AUTO) 0.7 K/uL (1.0-4.8); LYMPHOCYTES % (AUTO) 9.7 % (22.0-44.0); MEAN CORPUSCULAR HGB CONC 33.2 G/dL (31.0-37.0); MEAN CORPUSCULAR VOLUME 87 fL (80-100); MONOCYTES # (AUTO) 1.1 K/uL (0.1-1.0); MONOCYTES % (AUTO) 16.3 % (2.0-9.0); NEUTROPHILS # (AUTO) 4.9 K/uL (1.8-7.7); NEUTROPHILS % (AUTO) 69.5 % (40.0-70.0); PLATELET COUNT (AUTO) 378 K/uL (150-450); RED BLOOD CELL COUNT(AUTO) 3.09 MIL/uL (4.00-5.20); RED CELL DISTRIBUTION WIDTH 15.9 % (11.5-14.5)
[2019-06-17 06:37] LABS: CALCIUM, TOTAL 8.9 mg/dL (8.8-10.5); CREATININE 1.78 mg/dL (0.60-1.30); MAGNESIUM 1.6 mg/dL (1.80-2.40); PHOSPHORUS 3.3 mg/dL (2.5-4.9); POTASSIUM 3.7 mmol/L (3.5-5.1)
[2019-06-17 07:50] VITALS: BP 146/77
[2019-06-17 08:58] VITALS: BP 153/57
[2019-06-17] MEDS: DOCUSATE SODIUM 100 MG CAPSULE PO SCH (09:00)
[2019-06-17] MEDS: POLYETHYLENE GLYCOL 3350 17 GM PACKET PO SCH (09:00)
[2019-06-17] MEDS: FUROSEMIDE 40 MG/4 ML VIAL IVP SCH ×3 (09:05→20:51)
[2019-06-17] MEDS: HydrALAZINE HCL 25 MG TABLET PO SCH ×3 (09:05→20:50)
[2019-06-17] MEDS: NIFEdipine 60 MG ER TABLET PO SCH ×2 (09:06→20:50)
[2019-06-17] MEDS: TraMADol HCL 50 MG TABLET PO PRN ×2 (09:06→15:52)
[2019-06-17] MEDS: 0.9% SODIUM CHLORIDE 10 ML SYRINGE IVP SCH ×2 (09:06→15:51)
[2019-06-17] MEDS: OXYGEN THERAPY IH SCH ×2 (09:06→20:49)
[2019-06-17] MEDS: INSULIN HUMAN NPH-REGULAR 70/30 100 UNITS/ML SQ SCH ×2 (09:16→21:06)
[2019-06-17] MEDS: EPOETIN ALFA 10,000 UNITS/ML VIAL SQ SCH (11:39)
[2019-06-17] MEDS: BusPIRone HCL 5 MG TABLET PO SCH ×2 (11:40→20:50)
[2019-06-17] MEDS: HEPARIN SODIUM,PORCINE 5,000 UNITS/ML VIAL SQ SCH ×2 (11:40→20:50)
[2019-06-17] MEDS: ISOSORBIDE MONONITRATE 30 MG ER TABLET PO SCH (11:40)
[2019-06-17] MEDS: BETHANECHOL CHLORIDE 10 MG TABLET PO SCH ×3 (11:40→20:49)
[2019-06-17] MEDS: OMEPRAZOLE 20 MG CAPSULE PO SCH ×2 (11:40→20:49)
[2019-06-17] MEDS: ASPIRIN 81 MG CHEWABLE TABLET PO SCH (11:40)
[2019-06-17] MEDS: VITAMIN B COMP/VIT C/FOLIC ACID CAPSULE PO SCH (11:40)
[2019-06-17] MEDS: NYSTATIN 15 GM POWDER BOTTLE TP SCH ×2 (11:41→21:10)
[2019-06-17] MEDS: ESCITALOPRAM OXALATE 10 MG TABLET PO SCH (11:42)
[2019-06-17 11:50] VITALS: BP 137/72
[2019-06-17] MEDS ORDERED: POLYETHYLENE GLYCOL 3350 17 GM PACKET PO PRN (12:15)
[2019-06-17] MEDS ORDERED: DOCUSATE SODIUM 100 MG CAPSULE PO PRN (12:15)
[2019-06-17 12:25] LABS: GLUCOMETER DEV NAME(LOC) 2WR.2; GLUCOSE,POINT OF CARE 142 MG/DL (70-110)
[2019-06-17 16:42] VITALS: BP 139/58
[2019-06-17 18:25] LABS: GLUCOMETER DEV NAME(LOC) 2WR.2; GLUCOSE,POINT OF CARE 118 MG/DL (70-110)
[2019-06-17 20:30] VITALS: BP 129/67
[2019-06-17] MEDS ORDERED: SODIUM CHLORIDE 0.9% 250 ML IV ONE (20:44)
[2019-06-17] MEDS: TAMSULOSIN HCL 0.4 MG CAPSULE PO SCH (20:49)
[2019-06-17] MEDS: ATORVASTATIN CALCIUM 40 MG TABLET PO SCH (20:50)
[2019-06-17] MEDS: MAGNESIUM OXIDE 400 MG TABLET PO SCH (20:50)
[2019-06-17] MEDS: MELATONIN 3 MG TABLET PO PRN (20:51)
[2019-06-17] MEDS: CefoTEtan DISOD 2 GM/DEXTROSE 50 ML IV SCH (20:53)
[2019-06-17] MEDS: INSULIN LISPRO 100 UNITS/ML SQ PRN (21:07)
[2019-06-17 21:14] LABS: GLUCOMETER DEV NAME(LOC) 2WR.1C; GLUCOSE,POINT OF CARE 234 MG/DL (70-110)
[2019-06-18 00:34] VITALS: BP 140/67
[2019-06-18] MEDS: 0.9% SODIUM CHLORIDE 10 ML SYRINGE IVP SCH ×3 (01:19→15:57)
[2019-06-18 02:15] LABS: GLUCOMETER DEV NAME(LOC) 2WR.1C; GLUCOSE,POINT OF CARE 159 MG/DL (70-110)
[2019-06-18] MEDS: ONDANSETRON HCL 4 MG/2 ML VIAL IVP PRN ×2 (05:24→21:44)
[2019-06-18 05:34] VITALS: BP 132/72
[2019-06-18 06:07] LABS: GLUCOMETER DEV NAME(LOC) 2WR.1C; GLUCOSE,POINT OF CARE 182 MG/DL (70-110)
[2019-06-18 08:05] LABS: BASOPHILS % (AUTO) 0.9 % (0.0-2.0); EOSINOPHILS % (AUTO) 3.7 % (1.0-6.0); HEMATOCRIT 27.2 % (36-46); HEMOGLOBIN 8.9 g/dL (12.0-16.0); LYMPHOCYTES # (AUTO) 0.7 K/uL (1.0-4.8); LYMPHOCYTES % (AUTO) 10.8 % (22.0-44.0); MEAN CORPUSCULAR HEMOGLOBIN 28.7 pg (26.0-34.0); MEAN CORPUSCULAR HGB CONC 32.9 G/dL (31.0-37.0); MEAN CORPUSCULAR VOLUME 87 fL (80-100); MONOCYTES # (AUTO) 0.9 K/uL (0.1-1.0); MONOCYTES % (AUTO) 14.7 % (2.0-9.0); NEUTROPHILS # (AUTO) 4.5 K/uL (1.8-7.7); NEUTROPHILS % (AUTO) 69.9 % (40.0-70.0); PLATELET COUNT (AUTO) 418 K/uL (150-450); RED BLOOD CELL COUNT(AUTO) 3.11 MIL/uL (4.00-5.20); RED CELL DISTRIBUTION WIDTH 16.5 % (11.5-14.5)
[2019-06-18 08:13] LABS: CALCIUM, TOTAL 8.8 mg/dL (8.8-10.5); CREATININE 1.99 mg/dL (0.60-1.30); MAGNESIUM 1.7 mg/dL (1.80-2.40); PHOSPHORUS 3.4 mg/dL (2.5-4.9); POTASSIUM 3.9 mmol/L (3.5-5.1)
[2019-06-18] MEDS: HydrALAZINE HCL 25 MG TABLET PO SCH ×3 (08:21→21:49)
[2019-06-18] MEDS: OXYGEN THERAPY IH SCH ×2 (08:23→21:42)
[2019-06-18] MEDS: BusPIRone HCL 5 MG TABLET PO SCH ×2 (08:24→21:44)
[2019-06-18] MEDS: ESCITALOPRAM OXALATE 10 MG TABLET PO SCH (08:24)
[2019-06-18] MEDS: VITAMIN B COMP/VIT C/FOLIC ACID CAPSULE PO SCH (08:24)
[2019-06-18] MEDS: OMEPRAZOLE 20 MG CAPSULE PO SCH ×2 (08:24→21:49)
[2019-06-18] MEDS: NIFEdipine 60 MG ER TABLET PO SCH ×2 (08:24→21:45)
[2019-06-18] MEDS: ISOSORBIDE MONONITRATE 30 MG ER TABLET PO SCH (08:24)
[2019-06-18] MEDS: MAGNESIUM OXIDE 400 MG TABLET PO SCH ×3 (08:25→21:49)
[2019-06-18] MEDS: FUROSEMIDE 40 MG/4 ML VIAL IVP SCH ×3 (08:25→21:44)
[2019-06-18] MEDS: BETHANECHOL CHLORIDE 10 MG TABLET PO SCH ×3 (08:25→21:45)
[2019-06-18] MEDS: ASPIRIN 81 MG CHEWABLE TABLET PO SCH (08:25)
[2019-06-18] MEDS: NYSTATIN 15 GM POWDER BOTTLE TP SCH ×2 (08:26→21:50)
[2019-06-18] MEDS: HEPARIN SODIUM,PORCINE 5,000 UNITS/ML VIAL SQ SCH ×2 (08:26→21:49)
[2019-06-18] MEDS: INSULIN HUMAN NPH-REGULAR 70/30 100 UNITS/ML SQ SCH ×2 (08:51→22:00)
[2019-06-18] MEDS: INSULIN LISPRO 100 UNITS/ML SQ PRN (08:52)
[2019-06-18 09:36] VITALS: BP 140/96
[2019-06-18 13:34] LABS: GLUCOMETER DEV NAME(LOC) 2WR.2; GLUCOSE,POINT OF CARE 127 MG/DL (70-110)
[2019-06-18] MEDS: TraMADol HCL 50 MG TABLET PO PRN (14:11)
[2019-06-18 15:15] VITALS: BP 130/66
[2019-06-18 18:05] LABS: GLUCOMETER DEV NAME(LOC) 2WR.2; GLUCOSE,POINT OF CARE 84 MG/DL (70-110)
[2019-06-18] MEDS: TAMSULOSIN HCL 0.4 MG CAPSULE PO SCH (21:49)
[2019-06-18] MEDS: CefoTEtan DISOD 2 GM/DEXTROSE 50 ML IV SCH (21:50)
[2019-06-18] MEDS: ATORVASTATIN CALCIUM 40 MG TABLET PO SCH (21:53)
[2019-06-18 22:37] LABS: GLUCOMETER DEV NAME(LOC) 2WR.2; GLUCOSE,POINT OF CARE 103 MG/DL (70-110)
[2019-06-18 23:30] VITALS: BP 146/79
[2019-06-18] MEDS: MELATONIN 3 MG TABLET PO PRN (23:58)
[2019-06-18] MEDS: GuaiFENesin/D-METHORPHAN [SUGAR-FREE] 200-20MG/10 ML SYRUP UDCUP PO PRN (23:58)
[2019-06-19] MEDS: 0.9% SODIUM CHLORIDE 10 ML SYRINGE IVP SCH ×3 (00:05→16:15)
[2019-06-19] MEDS: METOCLOPRAMIDE HCL 5 MG/ML 2 ML VIAL IVP PRN (02:40)
[2019-06-19 05:39] LABS: GLUCOMETER DEV NAME(LOC) 2WR.2; GLUCOSE,POINT OF CARE 150 MG/DL (70-110)
[2019-06-19 08:00] VITALS: BP 132/72
[2019-06-19] MEDS: LACTULOSE 20 GM/30 ML SOLUTION UDCUP PO PRN (09:10)
[2019-06-19] MEDS: OXYGEN THERAPY IH SCH ×2 (09:10→21:38)
[2019-06-19] MEDS: ONDANSETRON HCL 4 MG/2 ML VIAL IVP PRN ×2 (09:11→17:59)
[2019-06-19] MEDS: GuaiFENesin/D-METHORPHAN [SUGAR-FREE] 200-20MG/10 ML SYRUP UDCUP PO PRN (09:11)
[2019-06-19] MEDS: BETHANECHOL CHLORIDE 10 MG TABLET PO SCH ×3 (09:12→21:39)
[2019-06-19] MEDS: OMEPRAZOLE 20 MG CAPSULE PO SCH ×2 (09:12→21:39)
[2019-06-19] MEDS: HEPARIN SODIUM,PORCINE 5,000 UNITS/ML VIAL SQ SCH ×2 (09:12→21:40)
[2019-06-19] MEDS: BusPIRone HCL 5 MG TABLET PO SCH ×2 (09:12→21:40)
[2019-06-19] MEDS: ESCITALOPRAM OXALATE 10 MG TABLET PO SCH (09:12)
[2019-06-19] MEDS: ISOSORBIDE MONONITRATE 30 MG ER TABLET PO SCH (09:12)
[2019-06-19] MEDS: VITAMIN B COMP/VIT C/FOLIC ACID CAPSULE PO SCH (09:12)
[2019-06-19] MEDS: MAGNESIUM OXIDE 400 MG TABLET PO SCH ×3 (09:12→21:39)
[2019-06-19] MEDS: ASPIRIN 81 MG CHEWABLE TABLET PO SCH (09:12)
[2019-06-19] MEDS: HydrALAZINE HCL 25 MG TABLET PO SCH ×3 (09:12→21:39)
[2019-06-19] MEDS: FUROSEMIDE 40 MG/4 ML VIAL IVP SCH ×3 (09:13→21:40)
[2019-06-19] MEDS: NIFEdipine 60 MG ER TABLET PO SCH ×2 (09:13→21:40)
[2019-06-19] MEDS: NYSTATIN 15 GM POWDER BOTTLE TP SCH ×2 (09:16→21:41)
[2019-06-19] MEDS: INSULIN HUMAN NPH-REGULAR 70/30 100 UNITS/ML SQ SCH ×2 (09:29→21:45)
[2019-06-19] MEDS: INSULIN LISPRO 100 UNITS/ML SQ PRN ×2 (09:29→21:47)
[2019-06-19 13:49] LABS: GLUCOMETER DEV NAME(LOC) 2WR.1C; GLUCOSE,POINT OF CARE 98 MG/DL (70-110)
[2019-06-19 15:56] VITALS: BP 155/84
[2019-06-19 18:51] LABS: GLUCOMETER DEV NAME(LOC) 2WR.1C; GLUCOSE,POINT OF CARE 99 MG/DL (70-110)
[2019-06-19] MEDS: MELATONIN 3 MG TABLET PO PRN (21:38)
[2019-06-19] MEDS: ATORVASTATIN CALCIUM 40 MG TABLET PO SCH (21:39)
[2019-06-19] MEDS: TraMADol HCL 50 MG TABLET PO PRN (21:39)
[2019-06-19] MEDS: TAMSULOSIN HCL 0.4 MG CAPSULE PO SCH (21:40)
[2019-06-19] MEDS: CefoTEtan DISOD 2 GM/DEXTROSE 50 ML IV SCH (21:40)
[2019-06-19 23:46] VITALS: BP 130/54
[2019-06-20] MEDS: 0.9% SODIUM CHLORIDE 10 ML SYRINGE IVP SCH ×4 (04:10→23:53)
[2019-06-20] MEDS: ONDANSETRON HCL 4 MG/2 ML VIAL IVP PRN ×2 (04:10→18:33)
[2019-06-20 05:34] LABS: GLUCOMETER DEV NAME(LOC) 2WR.1C; GLUCOSE,POINT OF CARE 202 MG/DL (70-110)
[2019-06-20 06:02] LABS: GLUCOMETER DEV NAME(LOC) 2WR.2; GLUCOSE,POINT OF CARE 96 MG/DL (70-110)
[2019-06-20 06:44] LABS: BASOPHILS % (AUTO) 0.6 % (0.0-2.0); EOSINOPHILS % (AUTO) 4.2 % (1.0-6.0); HEMATOCRIT 27.2 % (36-46); LYMPHOCYTES # (AUTO) 0.6 K/uL (1.0-4.8); LYMPHOCYTES % (AUTO) 9.3 % (22.0-44.0); MEAN CORPUSCULAR HEMOGLOBIN 29.2 pg (26.0-34.0); MEAN CORPUSCULAR HGB CONC 33.1 G/dL (31.0-37.0); MEAN CORPUSCULAR VOLUME 88 fL (80-100); MONOCYTES # (AUTO) 0.9 K/uL (0.1-1.0); MONOCYTES % (AUTO) 13.2 % (2.0-9.0); NEUTROPHILS # (AUTO) 4.7 K/uL (1.8-7.7); NEUTROPHILS % (AUTO) 72.7 % (40.0-70.0); PLATELET COUNT (AUTO) 461 K/uL (150-450); RED BLOOD CELL COUNT(AUTO) 3.09 MIL/uL (4.00-5.20); RED CELL DISTRIBUTION WIDTH 17.1 % (11.5-14.5)
[2019-06-20 06:59] LABS: CALCIUM, TOTAL 9.1 mg/dL (8.8-10.5); CREATININE 2.38 mg/dL (0.60-1.30); MAGNESIUM 1.8 mg/dL (1.80-2.40); PHOSPHORUS 3.4 mg/dL (2.5-4.9); POTASSIUM 4.2 mmol/L (3.5-5.1)
[2019-06-20 07:30] VITALS: BP 144/80
[2019-06-20] MEDS: OXYGEN THERAPY IH SCH ×2 (08:02→21:06)
[2019-06-20] MEDS: EPOETIN ALFA 10,000 UNITS/ML VIAL SQ SCH (08:03)
[2019-06-20] MEDS: ISOSORBIDE MONONITRATE 30 MG ER TABLET PO SCH (08:03)
[2019-06-20] MEDS: NYSTATIN 15 GM POWDER BOTTLE TP SCH ×2 (08:03→21:07)
[2019-06-20] MEDS: VITAMIN B COMP/VIT C/FOLIC ACID CAPSULE PO SCH (08:03)
[2019-06-20] MEDS: NIFEdipine 60 MG ER TABLET PO SCH ×2 (08:03→21:06)
[2019-06-20] MEDS: ESCITALOPRAM OXALATE 10 MG TABLET PO SCH (08:04)
[2019-06-20] MEDS: ASPIRIN 81 MG CHEWABLE TABLET PO SCH (08:04)
[2019-06-20] MEDS: BusPIRone HCL 5 MG TABLET PO SCH ×2 (08:04→21:06)
[2019-06-20] MEDS: HydrALAZINE HCL 25 MG TABLET PO SCH ×3 (08:04→21:06)
[2019-06-20] MEDS: BETHANECHOL CHLORIDE 10 MG TABLET PO SCH ×3 (08:04→21:06)
[2019-06-20] MEDS: OMEPRAZOLE 20 MG CAPSULE PO SCH ×2 (08:05→21:07)
[2019-06-20] MEDS: HEPARIN SODIUM,PORCINE 5,000 UNITS/ML VIAL SQ SCH ×2 (08:06→21:07)
[2019-06-20] MEDS: INSULIN HUMAN NPH-REGULAR 70/30 100 UNITS/ML SQ SCH ×2 (08:12→21:16)
[2019-06-20] MEDS: MAGNESIUM OXIDE 400 MG TABLET PO SCH ×3 (08:13→21:07)
[2019-06-20] MEDS: FUROSEMIDE 40 MG/4 ML VIAL IVP SCH ×3 (08:13→21:07)
[2019-06-20 15:46] VITALS: BP 134/87
[2019-06-20 19:21] LABS: GLUCOMETER DEV NAME(LOC) 2WR.2; GLUCOSE,POINT OF CARE 137 MG/DL (70-110)
[2019-06-20] MEDS: ATORVASTATIN CALCIUM 40 MG TABLET PO SCH (21:06)
[2019-06-20] MEDS: TAMSULOSIN HCL 0.4 MG CAPSULE PO SCH (21:06)
[2019-06-20] MEDS: MELATONIN 3 MG TABLET PO PRN (21:12)
[2019-06-20] MEDS: CefoTEtan DISOD 2 GM/DEXTROSE 50 ML IV SCH (21:12)
[2019-06-20] MEDS: INSULIN LISPRO 100 UNITS/ML SQ PRN (21:15)
[2019-06-20 21:45] LABS: GLUCOMETER DEV NAME(LOC) 2WR.1C; GLUCOSE,POINT OF CARE 73 MG/DL (70-110)
[2019-06-20 22:03] LABS: GLUCOMETER DEV NAME(LOC) 2WR.2; GLUCOSE,POINT OF CARE 245 MG/DL (70-110)
[2019-06-20 23:34] VITALS: BP 145/84
[2019-06-21] MEDS: ONDANSETRON HCL 4 MG/2 ML VIAL IVP PRN ×2 (03:41→11:07)
[2019-06-21] MEDS: SIMETHICONE 80 MG CHEWABLE TABLET CHEW PRN (04:58)
[2019-06-21] MEDS: ACETAMINOPHEN 325 MG TABLET PO PRN (04:59)
[2019-06-21 06:11] LABS: GLUCOMETER DEV NAME(LOC) 2WR.1C; GLUCOSE,POINT OF CARE 113 MG/DL (70-110)
[2019-06-21 06:33] LABS: BASOPHILS % (AUTO) 0.8 % (0.0-2.0); EOSINOPHILS % (AUTO) 4.1 % (1.0-6.0); HEMATOCRIT 28.6 % (36-46); HEMOGLOBIN 9.3 g/dL (12.0-16.0); LYMPHOCYTES # (AUTO) 0.7 K/uL (1.0-4.8); LYMPHOCYTES % (AUTO) 11.6 % (22.0-44.0); MEAN CORPUSCULAR HEMOGLOBIN 28.8 pg (26.0-34.0); MEAN CORPUSCULAR HGB CONC 32.7 G/dL (31.0-37.0); MEAN CORPUSCULAR VOLUME 88 fL (80-100); MONOCYTES # (AUTO) 0.9 K/uL (0.1-1.0); MONOCYTES % (AUTO) 13.7 % (2.0-9.0); NEUTROPHILS # (AUTO) 4.3 K/uL (1.8-7.7); NEUTROPHILS % (AUTO) 69.8 % (40.0-70.0); PLATELET COUNT (AUTO) 484 K/uL (150-450); RED BLOOD CELL COUNT(AUTO) 3.24 MIL/uL (4.00-5.20); RED CELL DISTRIBUTION WIDTH 17.7 % (11.5-14.5)
[2019-06-21 06:50] LABS: MAGNESIUM 1.8 mg/dL (1.80-2.40); PHOSPHORUS 2.9 mg/dL (2.5-4.9)
[2019-06-21 07:23] LABS: CALCIUM, TOTAL 9.1 mg/dL (8.8-10.5); CREATININE 2.31 mg/dL (0.60-1.30); POTASSIUM 4.1 mmol/L (3.5-5.1)
[2019-06-21 07:47] VITALS: BP 158/74
[2019-06-21] MEDS: 0.9% SODIUM CHLORIDE 10 ML SYRINGE IVP SCH ×2 (08:21→16:49)
[2019-06-21] MEDS: OXYGEN THERAPY IH SCH ×3 (08:21→21:07)
[2019-06-21] MEDS: METOCLOPRAMIDE HCL 5 MG/ML 2 ML VIAL IVP PRN (08:21)
[2019-06-21] MEDS: VITAMIN B COMP/VIT C/FOLIC ACID CAPSULE PO SCH (08:29)
[2019-06-21] MEDS: MAGNESIUM OXIDE 400 MG TABLET PO SCH ×3 (08:29→21:06)
[2019-06-21] MEDS: ASPIRIN 81 MG CHEWABLE TABLET PO SCH (08:29)
[2019-06-21] MEDS: ESCITALOPRAM OXALATE 10 MG TABLET PO SCH (08:29)
[2019-06-21] MEDS: BusPIRone HCL 5 MG TABLET PO SCH ×2 (08:29→21:06)
[2019-06-21] MEDS: HydrALAZINE HCL 25 MG TABLET PO SCH ×3 (08:29→21:06)
[2019-06-21] MEDS: NIFEdipine 60 MG ER TABLET PO SCH ×2 (08:29→21:06)
[2019-06-21] MEDS: BETHANECHOL CHLORIDE 10 MG TABLET PO SCH ×3 (08:29→21:06)
[2019-06-21] MEDS: FUROSEMIDE 40 MG/4 ML VIAL IVP SCH ×3 (08:30→21:06)
[2019-06-21] MEDS: ISOSORBIDE MONONITRATE 30 MG ER TABLET PO SCH (08:30)
[2019-06-21] MEDS: HEPARIN SODIUM,PORCINE 5,000 UNITS/ML VIAL SQ SCH ×2 (08:30→21:06)
[2019-06-21] MEDS: INSULIN HUMAN NPH-REGULAR 70/30 100 UNITS/ML SQ SCH ×2 (08:33→21:19)
[2019-06-21] MEDS: NYSTATIN 15 GM POWDER BOTTLE TP SCH ×2 (08:34→21:20)
[2019-06-21] MEDS: OMEPRAZOLE 20 MG CAPSULE PO SCH ×2 (08:37→21:06)
[2019-06-21] MEDS: TraMADol HCL 50 MG TABLET PO PRN (11:07)
[2019-06-21 11:35] LABS: GLUCOMETER DEV NAME(LOC) 2WR.2; GLUCOSE,POINT OF CARE 144 MG/DL (70-110)
[2019-06-21] MEDS: INSULIN LISPRO 100 UNITS/ML SQ PRN ×2 (12:50→21:19)
[2019-06-21 16:02] VITALS: BP 132/59
[2019-06-21 18:33] LABS: GLUCOMETER DEV NAME(LOC) 2WR.2; GLUCOSE,POINT OF CARE 96 MG/DL (70-110)
[2019-06-21 21:05] VITALS: BP 133/57
[2019-06-21] MEDS: TAMSULOSIN HCL 0.4 MG CAPSULE PO SCH (21:06)
[2019-06-21] MEDS: ATORVASTATIN CALCIUM 40 MG TABLET PO SCH (21:06)
[2019-06-21] MEDS: MELATONIN 3 MG TABLET PO PRN (21:06)
[2019-06-21] MEDS: CefoTEtan DISOD 2 GM/DEXTROSE 50 ML IV SCH (21:07)
[2019-06-21 22:37] LABS: GLUCOMETER DEV NAME(LOC) 2WR.1C; GLUCOSE,POINT OF CARE 203 MG/DL (70-110)
[2019-06-21 23:00] VITALS: BP 123/62
[2019-06-22] MEDS: 0.9% SODIUM CHLORIDE 10 ML SYRINGE IVP SCH ×4 (00:14→23:20)
[2019-06-22] MEDS: SIMETHICONE 80 MG CHEWABLE TABLET CHEW PRN (02:51)
[2019-06-22] MEDS: ONDANSETRON HCL 4 MG/2 ML VIAL IVP PRN ×2 (05:41→13:26)
[2019-06-22 06:09] LABS: GLUCOMETER DEV NAME(LOC) 2WR.2; GLUCOSE,POINT OF CARE 108 MG/DL (70-110)
[2019-06-22 06:58] LABS: CALCIUM, TOTAL 8.8 mg/dL (8.8-10.5); CREATININE 2.32 mg/dL (0.60-1.30); POTASSIUM 3.9 mmol/L (3.5-5.1)
[2019-06-22 08:00] VITALS: BP 152/90
[2019-06-22] MEDS: OXYGEN THERAPY IH SCH (08:25)
[2019-06-22] MEDS: FUROSEMIDE 40 MG/4 ML VIAL IVP SCH ×3 (08:26→20:55)
[2019-06-22] MEDS: DICYCLOMINE HCL 10 MG CAPSULE PO PRN (08:26)
[2019-06-22] MEDS: BETHANECHOL CHLORIDE 10 MG TABLET PO SCH (08:26)
[2019-06-22] MEDS: ISOSORBIDE MONONITRATE 30 MG ER TABLET PO SCH (08:26)
[2019-06-22] MEDS: OMEPRAZOLE 20 MG CAPSULE PO SCH ×2 (08:26→20:54)
[2019-06-22] MEDS: HydrALAZINE HCL 25 MG TABLET PO SCH ×3 (08:26→20:54)
[2019-06-22] MEDS: VITAMIN B COMP/VIT C/FOLIC ACID CAPSULE PO SCH (08:27)
[2019-06-22] MEDS: ESCITALOPRAM OXALATE 10 MG TABLET PO SCH (08:27)
[2019-06-22] MEDS: NIFEdipine 60 MG ER TABLET PO SCH ×2 (08:27→20:56)
[2019-06-22] MEDS: MAGNESIUM OXIDE 400 MG TABLET PO SCH ×3 (08:27→20:55)
[2019-06-22] MEDS: ASPIRIN 81 MG CHEWABLE TABLET PO SCH (08:28)
[2019-06-22] MEDS: BusPIRone HCL 5 MG TABLET PO SCH ×2 (08:28→20:55)
[2019-06-22] MEDS: EPOETIN ALFA 10,000 UNITS/ML VIAL SQ SCH (08:28)
[2019-06-22] MEDS: HEPARIN SODIUM,PORCINE 5,000 UNITS/ML VIAL SQ SCH ×2 (08:28→20:55)
[2019-06-22] MEDS: INSULIN HUMAN NPH-REGULAR 70/30 100 UNITS/ML SQ SCH ×2 (08:33→22:08)
[2019-06-22] MEDS: NYSTATIN 15 GM POWDER BOTTLE TP SCH ×2 (08:43→20:56)
[2019-06-22 13:35] LABS: GLUCOMETER DEV NAME(LOC) 2WR.2; GLUCOSE,POINT OF CARE 100 MG/DL (70-110)
[2019-06-22 15:18] VITALS: BP 145/73
[2019-06-22 17:44] LABS: GLUCOMETER DEV NAME(LOC) 2WR.2; GLUCOSE,POINT OF CARE 99 MG/DL (70-110)
[2019-06-22] MEDS: METOCLOPRAMIDE HCL 5 MG/ML 2 ML VIAL IVP PRN (18:13)
[2019-06-22] MEDS ORDERED: SODIUM CHLORIDE 0.9% 100 ML ONE (19:19)
[2019-06-22 20:50] VITALS: BP 118/60
[2019-06-22] MEDS: MELATONIN 3 MG TABLET PO PRN (20:54)
[2019-06-22] MEDS: ATORVASTATIN CALCIUM 40 MG TABLET PO SCH (20:55)
[2019-06-22] MEDS: TAMSULOSIN HCL 0.4 MG CAPSULE PO SCH (20:55)
[2019-06-22] MEDS: CefoTEtan DISOD 2 GM/DEXTROSE 50 ML IV SCH (20:56)
[2019-06-22] MEDS: INSULIN LISPRO 100 UNITS/ML SQ PRN (22:08)
[2019-06-22 23:54] VITALS: BP 136/66
[2019-06-23 00:04] LABS: GLUCOMETER DEV NAME(LOC) 2WR.1C; GLUCOSE,POINT OF CARE 152 MG/DL (70-110)
[2019-06-23 01:15] LABS: GLUCOMETER DEV NAME(LOC) 2WR.2; GLUCOSE,POINT OF CARE 100 MG/DL (70-110)
[2019-06-23] MEDS: ONDANSETRON HCL 4 MG/2 ML VIAL IVP PRN ×2 (02:12→07:56)
[2019-06-23] MEDS ORDERED: NIFE-39 PO (04:34)
[2019-06-23] MEDS ORDERED: OMEP20 PO (04:36)
[2019-06-23] MEDS: DICYCLOMINE HCL 10 MG CAPSULE PO PRN (04:37)
[2019-06-23] MEDS ORDERED: B CO1CAP6 PO (04:38)
[2019-06-23] MEDS ORDERED: TAMS-13 PO (04:46)
[2019-06-23] MEDS ORDERED: MAGOX PO (04:46)
[2019-06-23] MEDS ORDERED: BUSP5TAB20 PO (04:46)
[2019-06-23] MEDS ORDERED: INSU100V SQ (04:46)
[2019-06-23] MEDS ORDERED: ESCI10TA PO (04:46)
[2019-06-23 06:14] LABS: GLUCOMETER DEV NAME(LOC) 2WR.1C; GLUCOSE,POINT OF CARE 98 MG/DL (70-110)
[2019-06-23] MEDS: SIMETHICONE 80 MG CHEWABLE TABLET CHEW PRN (06:49)
[2019-06-23] MEDS: 0.9% SODIUM CHLORIDE 10 ML SYRINGE IVP SCH ×3 (07:57→23:10)
[2019-06-23] MEDS: ISOSORBIDE MONONITRATE 30 MG ER TABLET PO SCH (08:51)
[2019-06-23] MEDS: HydrALAZINE HCL 25 MG TABLET PO SCH (08:51)
[2019-06-23] MEDS: ASPIRIN 81 MG CHEWABLE TABLET PO SCH (08:51)
[2019-06-23] MEDS: OMEPRAZOLE 20 MG CAPSULE PO SCH ×2 (08:51→21:32)
[2019-06-23] MEDS: VITAMIN B COMP/VIT C/FOLIC ACID CAPSULE PO SCH (08:51)
[2019-06-23] MEDS: BusPIRone HCL 5 MG TABLET PO SCH ×2 (08:51→21:32)
[2019-06-23] MEDS: FUROSEMIDE 40 MG/4 ML VIAL IVP SCH ×3 (08:51→21:33)
[2019-06-23] MEDS: MAGNESIUM OXIDE 400 MG TABLET PO SCH ×3 (08:52→21:32)
[2019-06-23] MEDS: HEPARIN SODIUM,PORCINE 5,000 UNITS/ML VIAL SQ SCH ×2 (08:52→22:00)
[2019-06-23] MEDS: NIFEdipine 60 MG ER TABLET PO SCH ×2 (08:52→21:32)
[2019-06-23] MEDS: ESCITALOPRAM OXALATE 10 MG TABLET PO SCH (08:52)
[2019-06-23 08:57] LABS: CALCIUM, TOTAL 9.1 mg/dL (8.8-10.5); CREATININE 2.26 mg/dL (0.60-1.30); MAGNESIUM 1.9 mg/dL (1.80-2.40); PHOSPHORUS 3.4 mg/dL (2.5-4.9)
[2019-06-23] MEDS: INSULIN HUMAN NPH-REGULAR 70/30 100 UNITS/ML SQ SCH ×2 (09:17→22:08)
[2019-06-23] MEDS: NYSTATIN 15 GM POWDER BOTTLE TP SCH ×2 (09:18→22:00)
[2019-06-23 10:10] VITALS: BP 147/80
[2019-06-23] MEDS: METOCLOPRAMIDE HCL 5 MG/ML 2 ML VIAL IVP PRN (13:15)
[2019-06-23 15:22] LABS: GLUCOMETER DEV NAME(LOC) 2WR.2; GLUCOSE,POINT OF CARE 122 MG/DL (70-110)
[2019-06-23 15:50] VITALS: BP 135/81
[2019-06-23] MEDS: HydrALAZINE HCL 50 MG TABLET PO SCH ×2 (17:11→21:32)
[2019-06-23 19:48] LABS: GLUCOMETER DEV NAME(LOC) 2WR.1C; GLUCOSE,POINT OF CARE 104 MG/DL (70-110)
[2019-06-23] MEDS: MELATONIN 3 MG TABLET PO PRN (21:32)
[2019-06-23] MEDS: DICYCLOMINE HCL 10 MG CAPSULE PO SCH (21:32)
[2019-06-23] MEDS: TAMSULOSIN HCL 0.4 MG CAPSULE PO SCH (21:32)
[2019-06-23] MEDS: ATORVASTATIN CALCIUM 40 MG TABLET PO SCH (21:32)
[2019-06-23] MEDS: INSULIN LISPRO 100 UNITS/ML SQ PRN (22:08)
[2019-06-23 22:17] LABS: GLUCOMETER DEV NAME(LOC) 2WR.2; GLUCOSE,POINT OF CARE 205 MG/DL (70-110)
[2019-06-23 23:28] VITALS: BP 128/60
[2019-06-24] MEDS: ONDANSETRON HCL 4 MG/2 ML VIAL IVP PRN (01:46)
[2019-06-24] MEDS: SIMETHICONE 80 MG CHEWABLE TABLET CHEW PRN (02:59)
[2019-06-24] MEDS: TraMADol HCL 50 MG TABLET PO PRN (03:00)
[2019-06-24 06:04] LABS: GLUCOMETER DEV NAME(LOC) 2WR.2; GLUCOSE,POINT OF CARE 81 MG/DL (70-110)
[2019-06-24 07:15] VITALS: BP 143/81
[2019-06-24 07:15] LABS: CALCIUM, TOTAL 8.6 mg/dL (8.8-10.5); CREATININE 2.14 mg/dL (0.60-1.30); POTASSIUM 3.8 mmol/L (3.5-5.1)
[2019-06-24] MEDS: 0.9% SODIUM CHLORIDE 10 ML SYRINGE IVP SCH ×3 (08:07→23:36)
[2019-06-24] MEDS: VITAMIN B COMP/VIT C/FOLIC ACID CAPSULE PO SCH (08:08)
[2019-06-24] MEDS: EPOETIN ALFA 10,000 UNITS/ML VIAL SQ SCH (08:08)
[2019-06-24] MEDS: FUROSEMIDE 40 MG/4 ML VIAL IVP SCH ×2 (08:08→16:45)
[2019-06-24] MEDS: MAGNESIUM OXIDE 400 MG TABLET PO SCH ×3 (08:08→21:42)
[2019-06-24] MEDS: OMEPRAZOLE 20 MG CAPSULE PO SCH ×2 (08:08→21:41)
[2019-06-24] MEDS: ISOSORBIDE MONONITRATE 30 MG ER TABLET PO SCH (08:08)
[2019-06-24] MEDS: ESCITALOPRAM OXALATE 10 MG TABLET PO SCH (08:08)
[2019-06-24] MEDS: DICYCLOMINE HCL 10 MG CAPSULE PO SCH ×4 (08:09→21:41)
[2019-06-24] MEDS: HEPARIN SODIUM,PORCINE 5,000 UNITS/ML VIAL SQ SCH ×2 (08:09→21:44)
[2019-06-24] MEDS: BusPIRone HCL 5 MG TABLET PO SCH ×2 (08:09→21:41)
[2019-06-24] MEDS: ASPIRIN 81 MG CHEWABLE TABLET PO SCH (08:09)
[2019-06-24] MEDS: NIFEdipine 60 MG ER TABLET PO SCH ×2 (08:09→21:42)
[2019-06-24] MEDS: HydrALAZINE HCL 50 MG TABLET PO SCH ×3 (08:09→21:42)
[2019-06-24] MEDS: NYSTATIN 15 GM POWDER BOTTLE TP SCH ×2 (08:10→21:00)
[2019-06-24] MEDS: INSULIN HUMAN NPH-REGULAR 70/30 100 UNITS/ML SQ SCH ×2 (08:21→21:50)
[2019-06-24] MEDS: LOSARTAN POTASSIUM 25 MG TABLET PO SCH (10:21)
[2019-06-24] MEDS: INSULIN LISPRO 100 UNITS/ML SQ PRN ×2 (12:40→21:51)
[2019-06-24 13:19] LABS: GLUCOMETER DEV NAME(LOC) 2WR.2; GLUCOSE,POINT OF CARE 179 MG/DL (70-110)
[2019-06-24 16:10] VITALS: BP 127/67
[2019-06-24] MEDS: GuaiFENesin/D-METHORPHAN [SUGAR-FREE] 200-20MG/10 ML SYRUP UDCUP PO PRN (17:23)
[2019-06-24] MEDS ORDERED: ONDANSETRON HCL 4 MG/2 ML VIAL PO PRN (18:00)
[2019-06-24 19:29] LABS: APPEARANCE,URINE CLEAR (CLEAR); BILIRUBIN,URINE NEGATIVE (NEGATIVE); GLUCOSE, URINE (UA) NEGATIVE (NEGATIVE); KETONES,URINE NEGATIVE (NEGATIVE); LEUKOCYTE ESTERASE ,URINE NEGATIVE (NEGATIVE); NITRATE,URINE NEGATIVE (NEGATIVE); OCCULT BLOOD,URINE NEGATIVE (NEGATIVE); PH,URINE 7.5 (5.0-8.0); PROTEIN,URINE POS 1+ (NEGATIVE); UROBILINOGEN,URINE 0.2 mg/dL (<=1.0)
[2019-06-24 19:38] LABS: BACTERIA,URINE None Seen /HPF (None Seen); RBC,URINE 0-2 /HPF (0-2); SQUAMOUS EPITHELIAL CELL,UR Moderate /LPF (None Seen)
[2019-06-24] MEDS ORDERED: HYDR-2924 PO (19:38)
[2019-06-24] MEDS ORDERED: LOSA25TA71 PO (19:38)
[2019-06-24] MEDS ORDERED: DICY10 PO (19:38)
[2019-06-24] MEDS ORDERED: FURO40 PO (19:38)
[2019-06-24] MEDS ORDERED: ISOS30TA6 PO (19:38)
[2019-06-24 21:09] LABS: GLUCOMETER DEV NAME(LOC) 2WR.1C; GLUCOSE,POINT OF CARE 138 MG/DL (70-110)
[2019-06-24] MEDS: TAMSULOSIN HCL 0.4 MG CAPSULE PO SCH (21:42)
[2019-06-24] MEDS: ATORVASTATIN CALCIUM 40 MG TABLET PO SCH (21:42)
[2019-06-24] MEDS: FUROSEMIDE 40 MG TABLET PO SCH (21:42)
[2019-06-24 22:32] LABS: GLUCOMETER DEV NAME(LOC) 2WR.2; GLUCOSE,POINT OF CARE 216 MG/DL (70-110)
[2019-06-24 23:16] VITALS: BP 137/77
[2019-06-25] MEDS: MELATONIN 3 MG TABLET PO PRN (00:55)
[2019-06-25] MEDS: ACETAMINOPHEN 325 MG TABLET PO PRN (00:55)
[2019-06-25] MEDS: METOCLOPRAMIDE HCL 5 MG/ML 2 ML VIAL IVP PRN (02:19)
[2019-06-25 05:42] LABS: GLUCOMETER DEV NAME(LOC) 2WR.2; GLUCOSE,POINT OF CARE 110 MG/DL (70-110)
[2019-06-25 07:30] VITALS: BP 140/64
[2019-06-25] MEDS: HydrALAZINE HCL 50 MG TABLET PO SCH (08:58)
[2019-06-25] MEDS: VITAMIN B COMP/VIT C/FOLIC ACID CAPSULE PO SCH (08:58)
[2019-06-25] MEDS: ASPIRIN 81 MG CHEWABLE TABLET PO SCH (08:58)
[2019-06-25] MEDS: ISOSORBIDE MONONITRATE 30 MG ER TABLET PO SCH (08:59)
[2019-06-25] MEDS: ESCITALOPRAM OXALATE 10 MG TABLET PO SCH (08:59)
[2019-06-25] MEDS: OMEPRAZOLE 20 MG CAPSULE PO SCH (08:59)
[2019-06-25] MEDS: LOSARTAN POTASSIUM 25 MG TABLET PO SCH (08:59)
[2019-06-25] MEDS: BusPIRone HCL 5 MG TABLET PO SCH (08:59)
[2019-06-25] MEDS: FUROSEMIDE 40 MG TABLET PO SCH (08:59)
[2019-06-25] MEDS: NIFEdipine 60 MG ER TABLET PO SCH (08:59)
[2019-06-25] MEDS: MAGNESIUM OXIDE 400 MG TABLET PO SCH (08:59)
[2019-06-25] MEDS: NYSTATIN 15 GM POWDER BOTTLE TP SCH (09:00)
[2019-06-25] MEDS: HEPARIN SODIUM,PORCINE 5,000 UNITS/ML VIAL SQ SCH (09:00)
[2019-06-25] MEDS: DICYCLOMINE HCL 10 MG CAPSULE PO SCH (09:00)
[2019-06-25] MEDS: 0.9% SODIUM CHLORIDE 10 ML SYRINGE IVP SCH (09:03)
[2019-06-25] MEDS: INSULIN HUMAN NPH-REGULAR 70/30 100 UNITS/ML SQ SCH (09:19)
== END 2019-06-25 12:30 | disposition home health service (06) | DRG 947 ==
LOC: 2WR 16:39
PROVIDERS: ADMIT Physical Medicine & Rehabilitation; ATTEND Physical Medicine & Rehabilitation
PROC: 5A09357 Assistance with Respiratory Ventilation, Less than 24 Consecutive Hours, Continuous Positive Airway Pressure (ICD-10-PCS; principal; 2019-06-08)
PROC: 5A09357 Assistance with Respiratory Ventilation, Less than 24 Consecutive Hours, Continuous Positive Airway Pressure (ICD-10-PCS; 2019-06-10)
PROC: 30233N1 Transfusion of Nonautologous Red Blood Cells into Peripheral Vein, Percutaneous Approach (ICD-10-PCS; 2019-06-10)
PROC: 5A09357 Assistance with Respiratory Ventilation, Less than 24 Consecutive Hours, Continuous Positive Airway Pressure (ICD-10-PCS; 2019-06-11)
DX: R53.81 Other malaise (principal); I50.21 Acute systolic (congestive) heart failure; J18.9 Pneumonia, unspecified organism; E87.1 Hypo-osmolality and hyponatremia; E87.2 Acidosis; I13.0 Hypertensive heart and chronic kidney disease with heart failure and stage 1 through stage 4 chronic kidney disease, or unspecified chronic kidney disease; J44.0 Chronic obstructive pulmonary disease with (acute) lower respiratory infection; N18.4 Chronic kidney disease, stage 4 (severe); J91.8 Pleural effusion in other conditions classified elsewhere; D63.1 Anemia in chronic kidney disease; E11.22 Type 2 diabetes mellitus with diabetic chronic kidney disease; E11.42 Type 2 diabetes mellitus with diabetic polyneuropathy; E66.01 Morbid (severe) obesity due to excess calories; E78.5 Hyperlipidemia, unspecified; G47.33 Obstructive sleep apnea (adult) (pediatric); G89.29 Other chronic pain; H91.90 Unspecified hearing loss, unspecified ear; E11.43 Type 2 diabetes mellitus with diabetic autonomic (poly)neuropathy; E83.42 Hypomagnesemia; F32.9 Major depressive disorder, single episode, unspecified; F41.9 Anxiety disorder, unspecified; I35.0 Nonrheumatic aortic (valve) stenosis; K31.84 Gastroparesis; F43.23 Adjustment disorder with mixed anxiety and depressed mood; K44.9 Diaphragmatic hernia without obstruction or gangrene; Z53.20 Procedure and treatment not carried out because of patient's decision for unspecified reasons; I25.10 Atherosclerotic heart disease of native coronary artery without angina pectoris; I25.5 Ischemic cardiomyopathy; K21.9 Gastro-esophageal reflux disease without esophagitis; K59.00 Constipation, unspecified; Z79.899 Other long term (current) drug therapy; Z82.49 Family history of ischemic heart disease and other diseases of the circulatory system; Z82.5 Family history of asthma and other chronic lower respiratory diseases; Z83.3 Family history of diabetes mellitus; Z85.3 Personal history of malignant neoplasm of breast; Z86.73 Personal history of transient ischemic attack (TIA), and cerebral infarction without residual deficits; Z90.710 Acquired absence of both cervix and uterus; Z90.11 Acquired absence of right breast and nipple; Z88.2 Allergy status to sulfonamides; Z88.8 Allergy status to other drugs, medicaments and biological substances; Z68.35 Body mass index [BMI] 35.0-35.9, adult; Z79.82 Long term (current) use of aspirin; Z79.4 Long term (current) use of insulin
CPT/HCPCS: 71250; 74220; 76700; 80074; 82271; 82570; 83605; 83735; 84100; 84145; 84156; 84460; 86850; 86900; 86901; 86920; 87070; 87081; 87086; 87205; 93005; 94640; 94660; 97110; 97112; 97116; 97150; 97163; 97530; 97535; 99366; J0885; J1644; J1815; J1940; J2405; J2543; J2765; J2916; J3490; J7030; J7040; J7050; J7060; P9016

== ENCOUNTER 2019-12-30 10:46 | Emergency (ER) | payer MEDICARE, OTHER ==
[~2019-12-30] VITALS: Ht 167.6 cm; Wt 97.7 kg
[~2019-12-30 10:46] MED LIST changes: -AMLO10TA7 PO; -AMOX1TAB16 PO; +B CO1CAP6 PO; +BUSP5TAB20 PO; -CALC60CR5 TP; -DOCU100C33 PO; +ESCI-8 PO; -FERR325T22 PO; +INSU100V SQ; +ISOS30TA6 PO; -LABE100T8 PO; -LOSA-88 PO; +LOSA25TA71 PO; -MULT-12 PO; +OMEP20 PO; -OXYB5 PO; -PANT40TA25 PO; -PREG75 PO; -SODI650T PO; +TAMS-13 PO
[2019-12-30 11:25] LABS: BASOPHILS % (AUTO) 0.6 % (0.0-2.0); EOSINOPHILS % (AUTO) 4.6 % (1.0-6.0); HEMATOCRIT 27.2 % (36-46); HEMOGLOBIN 8.9 g/dL (12.0-16.0); LYMPHOCYTES # (AUTO) 1.3 K/uL (1.0-4.8); LYMPHOCYTES % (AUTO) 24.4 % (22.0-44.0); MEAN CORPUSCULAR HEMOGLOBIN 29.3 pg (26.0-34.0); MEAN CORPUSCULAR HGB CONC 32.6 G/dL (31.0-37.0); MEAN CORPUSCULAR VOLUME 90 fL (80-100); MONOCYTES # (AUTO) 0.8 K/uL (0.1-1.0); MONOCYTES % (AUTO) 14.8 % (2.0-9.0); NEUTROPHILS % (AUTO) 55.6 % (40.0-70.0); PLATELET COUNT (AUTO) 268 K/uL (150-450); RED BLOOD CELL COUNT(AUTO) 3.03 MIL/uL (4.00-5.20); RED CELL DISTRIBUTION WIDTH 13.8 % (11.5-14.5)
[2019-12-30 11:41] LABS: CALCIUM, TOTAL 8.4 mg/dL (8.8-10.5); CREATININE 2.05 mg/dL (0.60-1.30); POTASSIUM 4.3 mmol/L (3.5-5.1)
[2019-12-30 11:44] LABS: ALBUMIN 3.1 g/dL (3.4-5.0)
[2019-12-30 11:56] LABS: BILIRUBIN,TOTAL 0.3 mg/dL (0.1-1.0); TOTAL PROTEIN, SERUM 7.6 g/dL (6.4-8.2)
[2019-12-30 12:43] VITALS: BP 130/75
== END 2019-12-30 12:40 | disposition home or self-care (01) ==
LOC: EMS 10:49
DX: R60.0 Localized edema (principal); E11.9 Type 2 diabetes mellitus without complications; K21.9 Gastro-esophageal reflux disease without esophagitis; I10 Essential (primary) hypertension; F17.210 Nicotine dependence, cigarettes, uncomplicated; Z79.4 Long term (current) use of insulin; Z79.82 Long term (current) use of aspirin; Z88.1 Allergy status to other antibiotic agents; Z88.8 Allergy status to other drugs, medicaments and biological substances
CPT/HCPCS: 85379; 93970

== ENCOUNTER 2021-02-18 16:38 | Inpatient (IN) | payer MEDICARE, OTHER ==
[~2021-02-18] VITALS: Ht 167.6 cm; Wt 97.6 kg
[~2021-02-18 16:38] MED LIST changes: -ATOR40TA71 PO; -B CO1CAP6 PO; -BUSP5TAB20 PO; +CLON1PAT12 TD; -DICY10 PO; +DOCU-270 PO; +FE PR; +FLUC100T68 PO; +HEPA500018 SQ; -HYDR-2924 PO; +HYDR50TA36 PO; -INSU100V SQ; -ISOS30TA6 PO; +LIDO700A15 TP; -LOSA25TA71 PO; +METO5TAB95 PO; +PROM50S PR; -TRAM50TA4 PO; +ZOLP-280 PO
[2021-02-18] MEDS ORDERED: ACETAMINOPHEN 1000 MG/ISO-OSM 100 ML IV ONE (17:00)
[2021-02-18] MEDS ORDERED: SODIUM CHLORIDE 0.9% 3,000 ML IV ONE (17:00)
[2021-02-18 17:30] LABS: COVID AG,FIA SOURCE NASOPHARYNGEAL
[2021-02-18 17:36] LABS: BASOPHILS % (AUTO) 1.5 % (0.0-2.0); EOSINOPHILS % (AUTO) 0.6 % (1.0-6.0); HEMATOCRIT 24.9 % (36-46); HEMOGLOBIN 7.9 g/dL (12.0-16.0); LYMPHOCYTES # (AUTO) 1.5 K/uL (1.0-4.8); LYMPHOCYTES % (AUTO) 31.3 % (22.0-44.0); MEAN CORPUSCULAR HEMOGLOBIN 27.2 pg (26.0-34.0); MEAN CORPUSCULAR HGB CONC 31.8 G/dL (31.0-37.0); MEAN CORPUSCULAR VOLUME 86 fL (80-100); MONOCYTES # (AUTO) 0.2 K/uL (0.1-1.0); MONOCYTES % (AUTO) 3.7 % (2.0-9.0); NEUTROPHILS % (AUTO) 62.9 % (40.0-70.0); PLATELET COUNT (AUTO) 230 K/uL (150-450); RED BLOOD CELL COUNT(AUTO) 2.91 MIL/uL (4.00-5.20); RED CELL DISTRIBUTION WIDTH 16.3 % (11.5-14.5)
[2021-02-18 17:44] LABS: CALCIUM, TOTAL 9.3 mg/dL (8.8-10.5); CREATININE 6.37 mg/dL (0.60-1.30); POTASSIUM 5.4 mmol/L (3.5-5.1)
[2021-02-18] MEDS ORDERED: LEVOFLOXACIN 500 MG/D5% WATER 100 ML IV ONE (17:45)
[2021-02-18] MEDS ORDERED: PIPERACILLIN/TAZO 3.375 GM/D5W 50 ML IV ONE (17:45)
[2021-02-18 17:48] LABS: INR 1.1 (0.9-1.1); PROTHROMBIN TIME 11.6 SEC (9.4-11.6)
[2021-02-18 17:53] LABS: ALBUMIN 1.9 g/dL (3.4-5.0); BILIRUBIN,TOTAL 3.5 mg/dL (0.1-1.0); TOTAL PROTEIN, SERUM 6.8 g/dL (6.4-8.2)
[2021-02-18 19:08] LABS: APPEARANCE,URINE CLOUDY (CLEAR); GLUCOSE, URINE (UA) NEGATIVE (NEGATIVE); KETONES,URINE NEGATIVE (NEGATIVE); LEUKOCYTE ESTERASE ,URINE NEGATIVE (NEGATIVE); NITRATE,URINE NEGATIVE (NEGATIVE); OCCULT BLOOD,URINE MODERATE (NEGATIVE); PH,URINE 5.5 (5.0-8.0); PROTEIN,URINE POS 1+ (NEGATIVE)
[2021-02-18] MEDS ORDERED: MORPHINE SULFATE 4 MG/ML SYRINGE IVP ONE (19:15)
[2021-02-18] MEDS ORDERED: LORazepam 2 MG/ML VIAL IVP ONE (19:15)
[2021-02-18 19:19] LABS: BILIRUBIN,URINE PRELIM. POSITIVE (NEGATIVE)
[2021-02-18 19:31] LABS: AMORPHOUS SEDIMENT,UR Few /LPF (None Seen); BACTERIA,URINE Few /HPF (None Seen); HYALINE CASTS, URINE 0-2 /LPF (None Seen); RBC,URINE None Seen /HPF (0-2); SQUAMOUS EPITHELIAL CELL,UR Few /LPF (None Seen); WBC,URINE 0-2 /HPF (0-5)
[2021-02-18] MEDS ORDERED: ACETAMINOPHEN 325 MG TABLET PO PRN ×2 (20:30)
[2021-02-18] MEDS ORDERED: SODIUM CHLORIDE 0.9% 1,000 ML IV ONE (20:30)
[2021-02-18] MEDS ORDERED: DEXTROSE 50%-WATER 25 GM/50 ML SYRINGE IVP PRN (20:30)
[2021-02-18] MEDS ORDERED: ONDANSETRON HCL 4 MG/2 ML VIAL IVP PRN (20:30)
[2021-02-18] MEDS ORDERED: BISACODYL 10 MG RECTAL RECTAL SUPPOSITORY PR PRN (20:30)
[2021-02-18] MEDS ORDERED: VANCOMYCIN HCL 1 GM/D5% WATER 200 ML IV ONE (20:45)
[2021-02-18] MEDS ORDERED: VANCOMYCIN HCL 1 GM/D5% WATER 200 ML IV PRN (21:00)
[2021-02-18] MEDS: DOCUSATE SODIUM 100 MG CAPSULE PO SCH (21:00)
[2021-02-18] MEDS: HEPARIN SODIUM,PORCINE 5,000 UNITS/ML VIAL SQ SCH (21:04)
[2021-02-19 04:58] LABS: HEMOGLOBIN 7.7 g/dL (12.0-16.0)
[2021-02-19 05:09] LABS: HEMATOCRIT 23.9 % (36-46); MEAN CORPUSCULAR HEMOGLOBIN 27.6 pg (26.0-34.0); MEAN CORPUSCULAR HGB CONC 32.1 G/dL (31.0-37.0); MEAN CORPUSCULAR VOLUME 86 fL (80-100); PLATELET COUNT (AUTO) 192 K/uL (150-450); RED BLOOD CELL COUNT(AUTO) 2.79 MIL/uL (4.00-5.20); RED CELL DISTRIBUTION WIDTH 16.4 % (11.5-14.5)
[2021-02-19 05:16] LABS: ALBUMIN 1.8 g/dL (3.4-5.0); BILIRUBIN,TOTAL 3.5 mg/dL (0.1-1.0); CREATININE 5.86 mg/dL (0.60-1.30); POTASSIUM 5.5 mmol/L (3.5-5.1); TOTAL PROTEIN, SERUM 6.4 g/dL (6.4-8.2)
[2021-02-19 05:45] LABS: BAND NEUTROPHILS % (MANUAL) 5 % (0-5); LYMPHOCYTES % (MANUAL) 8 % (22-44); MONOCYTES % (MANUAL) 10 % (2-9); SEGMENTED NEUTROPHILS % 77 % (40-70)
[2021-02-19] MEDS: PIPERACILLIN SODIUM/TAZOBACTAM 2.25 GM in DEXTROSE 5%-WATER 50 ML IV SCH ×3 (05:55→21:14)
[2021-02-19] MEDS: FAMOTIDINE 20 MG TABLET PO SCH (09:00)
[2021-02-19] MEDS: ASPIRIN 81 MG CHEWABLE TABLET PO SCH (09:00)
[2021-02-19] MEDS: HEPARIN SODIUM,PORCINE 5,000 UNITS/ML VIAL SQ SCH ×2 (09:00→21:12)
[2021-02-19] MEDS: DOCUSATE SODIUM 100 MG CAPSULE PO SCH ×2 (09:00→21:00)
[2021-02-19] MEDS ORDERED: ACETAMINOPHEN 1000 MG/ISO-OSM 100 ML IV ONE (10:30)
[2021-02-19] MEDS: RINGERS SOLUTION,LACTATED 1,000 ML IV SCH ×2 (10:43→19:52)
[2021-02-19 11:33] VITALS: BP 104/49
[2021-02-19] MEDS: LORazepam 2 MG/ML VIAL IVP PRN (13:55)
[2021-02-19 15:40] LABS: GLUCOMETER DEV NAME(LOC) 5S.1; GLUCOSE,POINT OF CARE 91 MG/DL (70-110)
[2021-02-19 15:46] VITALS: BP 115/56
[2021-02-19 17:08] LABS: CALCIUM, TOTAL 8.8 mg/dL (8.8-10.5); CREATININE 6.38 mg/dL (0.60-1.30); MAGNESIUM 2.7 mg/dL (1.80-2.40); PHOSPHORUS 7.6 mg/dL (2.5-4.9); POTASSIUM 5.5 mmol/L (3.5-5.1)
[2021-02-19] MEDS ORDERED: ACETAMINOPHEN 650 MG RECTAL SUPPOSITORY PR ONE (17:30)
[2021-02-19 17:50] LABS: GLUCOMETER DEV NAME(LOC) 5N.3; GLUCOSE,POINT OF CARE 156 MG/DL (70-110)
[2021-02-19 19:42] VITALS: BP 128/65
[2021-02-19] MEDS ORDERED: ACETAMINOPHEN 650 MG RECTAL SUPPOSITORY PR PRN (21:15)
[2021-02-20 00:23] VITALS: BP 106/55
[2021-02-20] MEDS: LORazepam 2 MG/ML VIAL IVP PRN ×3 (00:24→23:40)
[2021-02-20 05:01] VITALS: BP 129/54
[2021-02-20] MEDS: RINGERS SOLUTION,LACTATED 1,000 ML IV SCH (05:12)
[2021-02-20] MEDS: PIPERACILLIN SODIUM/TAZOBACTAM 2.25 GM in DEXTROSE 5%-WATER 50 ML IV SCH ×3 (05:12→23:00)
[2021-02-20 07:57] LABS: GLUCOMETER DEV NAME(LOC) 5S.2B; GLUCOSE,POINT OF CARE 77 MG/DL (70-110)
[2021-02-20 07:57] LABS: GLUCOMETER DEV NAME(LOC) 5S.2B; GLUCOSE,POINT OF CARE 82 MG/DL (70-110)
[2021-02-20 08:20] LABS: CALCIUM, TOTAL 8.8 mg/dL (8.8-10.5); CREATININE 6.6 mg/dL (0.60-1.30); POTASSIUM 5.7 mmol/L (3.5-5.1); VANCOMYCIN,RANDOM 10.2 mcg/mL (25.0-50.0)
[2021-02-20 08:29] VITALS: BP 92/54
[2021-02-20] MEDS: ASPIRIN 81 MG CHEWABLE TABLET PO SCH (08:45)
[2021-02-20] MEDS: DOCUSATE SODIUM 100 MG CAPSULE PO SCH ×2 (08:45→21:00)
[2021-02-20] MEDS: FAMOTIDINE 20 MG TABLET PO SCH (08:46)
[2021-02-20] MEDS: HEPARIN SODIUM,PORCINE 5,000 UNITS/ML VIAL SQ SCH ×2 (08:46→21:00)
[2021-02-20] MEDS: DEXTROSE 5%-WATER 1,000 ML IV SCH ×2 (11:13→20:00)
[2021-02-20] MEDS ORDERED: VANCOMYCIN HCL 1 GM/D5% WATER 200 ML IV ONE (12:00)
[2021-02-20 12:08] VITALS: BP 102/48
[2021-02-20 14:53] LABS: GLUCOMETER DEV NAME(LOC) 5S.1; GLUCOSE,POINT OF CARE 103 MG/DL (70-110)
[2021-02-20] MEDS: SODIUM ZIRCONIUM CYCLOSILICATE 5 GM POWDER PACKET PO SCH ×2 (16:00→21:00)
[2021-02-20 16:31] VITALS: BP 102/50
[2021-02-20 18:04] LABS: CREATININE 6.81 mg/dL (0.60-1.30); MAGNESIUM 2.7 mg/dL (1.80-2.40); PHOSPHORUS 6.9 mg/dL (2.5-4.9); POTASSIUM 5.6 mmol/L (3.5-5.1)
[2021-02-20 19:44] VITALS: BP 105/56
[2021-02-20] MEDS ORDERED: FUROSEMIDE 40 MG/4 ML VIAL IVP SCH (21:00)
[2021-02-20 21:26] LABS: GLUCOMETER DEV NAME(LOC) 5S.2B; GLUCOSE,POINT OF CARE 127 MG/DL (70-110)
[2021-02-20 21:30] LABS: GLUCOMETER DEV NAME(LOC) 5S.2B; GLUCOSE,POINT OF CARE 164 MG/DL (70-110)
[2021-02-21] VITALS (7 sets, daily range): BP systolic 95–107; BP diastolic 38–55
[2021-02-21] MEDS: DEXTROSE 5%-WATER 1,000 ML IV SCH ×2 (06:00→16:00)
[2021-02-21] MEDS: PIPERACILLIN SODIUM/TAZOBACTAM 2.25 GM in DEXTROSE 5%-WATER 50 ML IV SCH ×3 (06:18→22:50)
[2021-02-21] MEDS: INSULIN LISPRO 100 UNITS/ML SQ PRN (06:19)
[2021-02-21 06:22] LABS: GLUCOMETER DEV NAME(LOC) 5S.2B; GLUCOSE,POINT OF CARE 144 MG/DL (70-110)
[2021-02-21 08:31] LABS: CALCIUM, TOTAL 8.9 mg/dL (8.8-10.5); CREATININE 7.18 mg/dL (0.60-1.30); POTASSIUM 5.6 mmol/L (3.5-5.1); VANCOMYCIN,RANDOM 19.5 mcg/mL (25.0-50.0)
[2021-02-21 08:52] LABS: HEMATOCRIT 22.4 % (36-46); HEMOGLOBIN 7.1 g/dL (12.0-16.0); MEAN CORPUSCULAR HEMOGLOBIN 27.5 pg (26.0-34.0); MEAN CORPUSCULAR HGB CONC 31.6 G/dL (31.0-37.0); MEAN CORPUSCULAR VOLUME 87 fL (80-100); PLATELET COUNT (AUTO) 145 K/uL (150-450); RED BLOOD CELL COUNT(AUTO) 2.58 MIL/uL (4.00-5.20); RED CELL DISTRIBUTION WIDTH 16.8 % (11.5-14.5)
[2021-02-21] MEDS: HEPARIN SODIUM,PORCINE 5,000 UNITS/ML VIAL SQ SCH ×2 (08:58→19:48)
[2021-02-21] MEDS: FAMOTIDINE 20 MG TABLET PO SCH (09:00)
[2021-02-21] MEDS: SODIUM ZIRCONIUM CYCLOSILICATE 5 GM POWDER PACKET PO SCH ×3 (09:00→19:52)
[2021-02-21] MEDS: DOCUSATE SODIUM 100 MG CAPSULE PO SCH ×2 (09:00→19:51)
[2021-02-21] MEDS: ASPIRIN 81 MG CHEWABLE TABLET PO SCH (09:00)
[2021-02-21 09:09] LABS: MAGNESIUM 2.6 mg/dL (1.80-2.40); PHOSPHORUS 7.3 mg/dL (2.5-4.9)
[2021-02-21] MEDS: LORazepam 2 MG/ML VIAL IVP PRN (09:40)
[2021-02-21 09:50] LABS: BAND NEUTROPHILS % (MANUAL) 4 % (0-5); CORRECTED WHITE BLOOD COUNT 6.1 K/uL (4.5-11.0); LYMPHOCYTES % (MANUAL) 22 % (22-44); MONOCYTES % (MANUAL) 5 % (2-9); REACTIVE LYMPHOCYTES 2 % (0-0); SEGMENTED NEUTROPHILS % 67 % (40-70)
[2021-02-21] MEDS ORDERED: MIDAZOLAM HCL 2 MG/2 ML VIAL ONE (11:19)
[2021-02-21] MEDS ORDERED: FentaNYL CITRATE PF 100 MCG/2 ML VIAL ONE (11:19)
[2021-02-21] MEDS ORDERED: HEPARIN SODIUM,PORCINE 1,000 UNITS/ML VIAL IVP ONE (12:00)
[2021-02-21] MEDS ORDERED: HEPARIN SODIUM,PORCINE 100 UNITS/ML 5 ML VIAL IVP ONE (12:04)
[2021-02-21] MEDS ORDERED: LIDOCAINE 1%/EPI 1:200,000/PF 10 ML VIAL ONE (12:05)
[2021-02-21] MEDS ORDERED: HEPARIN SODIUM,PORCINE 1,000 UNITS/ML 10 ML VIAL ONE (12:05)
[2021-02-21] MEDS ORDERED: VANCOMYCIN HCL 1 GM/D5% WATER 200 ML IV ONE (17:00)
[2021-02-21 21:20] LABS: GLUCOMETER DEV NAME(LOC) 5S.2B; GLUCOSE,POINT OF CARE 138 MG/DL (70-110)
[2021-02-21 21:20] LABS: GLUCOMETER DEV NAME(LOC) 5S.2B; GLUCOSE,POINT OF CARE 109 MG/DL (70-110)
[2021-02-21 21:44] LABS: GLUCOMETER DEV NAME(LOC) 5N.1C; GLUCOSE,POINT OF CARE 131 MG/DL (70-110)
[2021-02-22] VITALS (8 sets, daily range): BP systolic 96–127; BP diastolic 40–66
[2021-02-22] MEDS: DEXTROSE 5%-WATER 1,000 ML IV SCH ×2 (00:29→12:00)
[2021-02-22] MEDS: LORazepam 2 MG/ML VIAL IVP PRN ×3 (02:15→18:24)
[2021-02-22] MEDS: PIPERACILLIN SODIUM/TAZOBACTAM 2.25 GM in DEXTROSE 5%-WATER 50 ML IV SCH ×3 (05:03→21:08)
[2021-02-22 06:05] LABS: GLUCOMETER DEV NAME(LOC) 5N.1C; GLUCOSE,POINT OF CARE 150 MG/DL (70-110)
[2021-02-22 06:14] LABS: CALCIUM, TOTAL 8.6 mg/dL (8.8-10.5); CREATININE 5.7 mg/dL (0.60-1.30); MAGNESIUM 2.5 mg/dL (1.80-2.40); PHOSPHORUS 6.4 mg/dL (2.5-4.9); VANCOMYCIN,RANDOM 27.2 mcg/mL (25.0-50.0)
[2021-02-22] MEDS: INSULIN LISPRO 100 UNITS/ML SQ PRN (06:36)
[2021-02-22 06:50] LABS: MEAN CORPUSCULAR HEMOGLOBIN 27.8 pg (26.0-34.0); MEAN CORPUSCULAR HGB CONC 32.2 G/dL (31.0-37.0); MEAN CORPUSCULAR VOLUME 86 fL (80-100); PLATELET COUNT (AUTO) 132 K/uL (150-450); RED BLOOD CELL COUNT(AUTO) 2.39 MIL/uL (4.00-5.20); RED CELL DISTRIBUTION WIDTH 16.5 % (11.5-14.5)
[2021-02-22 06:58] LABS: HEMOGLOBIN 6.6 g/dL (12.0-16.0)
[2021-02-22 06:59] LABS: HEMATOCRIT 20.6 % (36-46)
[2021-02-22 07:00] LABS: BAND NEUTROPHILS % (MANUAL) 5 % (0-5); CORRECTED WHITE BLOOD COUNT 5.1 K/uL (4.5-11.0); LYMPHOCYTES % (MANUAL) 25 % (22-44); MONOCYTES % (MANUAL) 5 % (2-9); REACTIVE LYMPHOCYTES 2 % (0-0); SEGMENTED NEUTROPHILS % 63 % (40-70)
[2021-02-22] MEDS ORDERED: SODIUM CHLORIDE 0.9% 250 ML IV ONE (08:47)
[2021-02-22] MEDS: DOCUSATE SODIUM 100 MG CAPSULE PO SCH ×2 (09:00→20:38)
[2021-02-22] MEDS: ASPIRIN 81 MG CHEWABLE TABLET PO SCH (09:00)
[2021-02-22] MEDS: HEPARIN SODIUM,PORCINE 5,000 UNITS/ML VIAL SQ SCH ×2 (09:00→20:38)
[2021-02-22] MEDS: FAMOTIDINE 20 MG TABLET PO SCH (09:00)
[2021-02-22] MEDS: SODIUM ZIRCONIUM CYCLOSILICATE 5 GM POWDER PACKET PO SCH ×3 (09:00→20:38)
[2021-02-22] MEDS ORDERED: HEPARIN SODIUM,PORCINE 1,000 UNITS/ML VIAL IVP ONE (12:00)
[2021-02-22 15:39] LABS: GLUCOMETER DEV NAME(LOC) 5S.2B; GLUCOSE,POINT OF CARE 127 MG/DL (70-110)
[2021-02-22 18:01] LABS: GLUCOMETER DEV NAME(LOC) 5S.2B; GLUCOSE,POINT OF CARE 127 MG/DL (70-110)
[2021-02-23 00:35] VITALS: BP 111/63
[2021-02-23] MEDS: DEXTROSE 5%-WATER 1,000 ML IV SCH (04:32)
[2021-02-23 04:40] VITALS: BP 128/60
[2021-02-23] MEDS: PIPERACILLIN SODIUM/TAZOBACTAM 2.25 GM in DEXTROSE 5%-WATER 50 ML IV SCH ×3 (04:58→22:40)
[2021-02-23] MEDS: INSULIN LISPRO 100 UNITS/ML SQ PRN ×2 (05:42→12:28)
[2021-02-23 06:54] LABS: GLUCOMETER DEV NAME(LOC) 5S.1; GLUCOSE,POINT OF CARE 146 MG/DL (70-110)
[2021-02-23 06:54] LABS: GLUCOMETER DEV NAME(LOC) 5S.1; GLUCOSE,POINT OF CARE 179 MG/DL (70-110)
[2021-02-23 07:45] VITALS: BP 129/51
[2021-02-23] MEDS: HEPARIN SODIUM,PORCINE 5,000 UNITS/ML VIAL SQ SCH ×2 (08:04→20:56)
[2021-02-23] MEDS: DOCUSATE SODIUM 100 MG CAPSULE PO SCH ×2 (09:00→20:54)
[2021-02-23] MEDS: ASPIRIN 81 MG CHEWABLE TABLET PO SCH (09:00)
[2021-02-23] MEDS: FAMOTIDINE 20 MG TABLET PO SCH (09:00)
[2021-02-23] MEDS: SODIUM ZIRCONIUM CYCLOSILICATE 5 GM POWDER PACKET PO SCH ×3 (09:00→21:00)
[2021-02-23 09:13] LABS: HEMATOCRIT 30.2 % (36-46); MEAN CORPUSCULAR HEMOGLOBIN 27.8 pg (26.0-34.0); MEAN CORPUSCULAR HGB CONC 33.3 G/dL (31.0-37.0); MEAN CORPUSCULAR VOLUME 84 fL (80-100); PLATELET COUNT (AUTO) 119 K/uL (150-450); RED BLOOD CELL COUNT(AUTO) 3.62 MIL/uL (4.00-5.20); RED CELL DISTRIBUTION WIDTH 16.3 % (11.5-14.5)
[2021-02-23 09:25] LABS: ALBUMIN 1.5 g/dL (3.4-5.0); BILIRUBIN,TOTAL 7.1 mg/dL (0.1-1.0); CALCIUM, TOTAL 8.9 mg/dL (8.8-10.5); CREATININE 4.16 mg/dL (0.60-1.30); POTASSIUM 4.9 mmol/L (3.5-5.1); TOTAL PROTEIN, SERUM 6.3 g/dL (6.4-8.2)
[2021-02-23 10:54] LABS: BAND NEUTROPHILS % (MANUAL) 0 % (0-5)
[2021-02-23 10:55] LABS: CORRECTED WHITE BLOOD COUNT 4.2 K/uL (4.5-11.0); EOSINOPHILS % (MANUAL) 2 % (1-6); LYMPHOCYTES % (MANUAL) 20 % (22-44); MONOCYTES % (MANUAL) 8 % (2-9); SEGMENTED NEUTROPHILS % 70 % (40-70)
[2021-02-23 11:39] VITALS: BP 132/63
[2021-02-23 16:30] VITALS: BP 97/49
[2021-02-23 19:29] VITALS: BP 147/51
[2021-02-24] VITALS (8 sets, daily range): BP systolic 95–115; BP diastolic 46–60
[2021-02-24] MEDS: MORPHINE SULFATE 2 MG/ML SYRINGE IVP PRN ×2 (04:28→12:44)
[2021-02-24] MEDS: PIPERACILLIN SODIUM/TAZOBACTAM 2.25 GM in DEXTROSE 5%-WATER 50 ML IV SCH ×3 (05:58→20:49)
[2021-02-24 06:19] LABS: GLUCOMETER DEV NAME(LOC) 5S.1; GLUCOSE,POINT OF CARE 118 MG/DL (70-110)
[2021-02-24 06:19] LABS: GLUCOMETER DEV NAME(LOC) 5S.1; GLUCOSE,POINT OF CARE 141 MG/DL (70-110)
[2021-02-24 06:19] LABS: GLUCOMETER DEV NAME(LOC) 5S.1; GLUCOSE,POINT OF CARE 180 MG/DL (70-110)
[2021-02-24 06:37] LABS: CALCIUM, TOTAL 8.5 mg/dL (8.8-10.5); CREATININE 3.33 mg/dL (0.60-1.30); POTASSIUM 3.9 mmol/L (3.5-5.1); VANCOMYCIN,RANDOM 16.7 mcg/mL (25.0-50.0)
[2021-02-24 06:52] LABS: BILIRUBIN,DIRECT 6.7 mg/dL (0.00-0.20); BILIRUBIN,TOTAL 7.7 mg/dL (0.1-1.0); C-REACTIVE PROTEIN QUANT 12.88 mg/dL (0.00-0.30); THYROID STIMULATING HORMONE 2.68 uIU/mL (0.36-3.74)
[2021-02-24] MEDS ORDERED: VANCOMYCIN HCL 1 GM/D5% WATER 200 ML IV ONE (08:00)
[2021-02-24 08:06] LABS: IGM (IMMUNOFIXATION) 34 mg/dL (26-217)
[2021-02-24] MEDS: ASPIRIN 81 MG CHEWABLE TABLET PO SCH (08:40)
[2021-02-24] MEDS: SODIUM ZIRCONIUM CYCLOSILICATE 5 GM POWDER PACKET PO SCH (08:41)
[2021-02-24] MEDS: HEPARIN SODIUM,PORCINE 5,000 UNITS/ML VIAL SQ SCH ×2 (08:41→20:01)
[2021-02-24] MEDS: FAMOTIDINE 20 MG TABLET PO SCH (08:41)
[2021-02-24] MEDS: DOCUSATE SODIUM 100 MG CAPSULE PO SCH ×2 (08:41→20:01)
[2021-02-24] MEDS: LORazepam 2 MG/ML VIAL IVP PRN (08:42)
[2021-02-24] MEDS: INSULIN LISPRO 100 UNITS/ML SQ PRN ×3 (11:34→20:48)
[2021-02-24 11:41] LABS: GLUCOMETER DEV NAME(LOC) 5N.1C; GLUCOSE,POINT OF CARE 142 MG/DL (70-110)
[2021-02-24 11:41] LABS: GLUCOMETER DEV NAME(LOC) 5N.1C; GLUCOSE,POINT OF CARE 155 MG/DL (70-110)
[2021-02-24] MEDS ORDERED: HEPARIN SODIUM,PORCINE 1,000 UNITS/ML VIAL IVP ONE (16:46)
[2021-02-24 17:08] LABS: GLUCOMETER DEV NAME(LOC) 5N.1C; GLUCOSE,POINT OF CARE 155 MG/DL (70-110)
[2021-02-24 21:33] LABS: COLLECTION TIME,URINE 24 HR; TPROTEIN TIMED,URINE 500 mg/dL; TPROTEIN URINE, 24HRS COLL 500 mg/24Hr (0-165)
[2021-02-24 23:20] LABS: % IRON SATURATION 18.7 % (22-44)
[2021-02-25 03:56] VITALS: BP 109/48
[2021-02-25] MEDS ORDERED: SODIUM CHLORIDE 0.9% 500 ML IV ONE (04:47)
[2021-02-25] MEDS: PIPERACILLIN SODIUM/TAZOBACTAM 2.25 GM in DEXTROSE 5%-WATER 50 ML IV SCH ×3 (05:53→21:12)
[2021-02-25] MEDS: INSULIN LISPRO 100 UNITS/ML SQ PRN (06:23)
[2021-02-25 07:35] VITALS: BP 113/52
[2021-02-25 07:47] LABS: ALBUMIN 1.2 g/dL (3.4-5.0); BILIRUBIN,TOTAL 7.7 mg/dL (0.1-1.0); CALCIUM, TOTAL 8.6 mg/dL (8.8-10.5); CREATININE 4.78 mg/dL (0.60-1.30); POTASSIUM 4.5 mmol/L (3.5-5.1); TOTAL PROTEIN, SERUM 5.6 g/dL (6.4-8.2)
[2021-02-25 07:49] LABS: INR 1.3 (0.9-1.1); PROTHROMBIN TIME 13.5 SEC (9.4-11.6)
[2021-02-25] MEDS: ASPIRIN 81 MG CHEWABLE TABLET PO SCH (09:00)
[2021-02-25] MEDS: FAMOTIDINE 20 MG TABLET PO SCH (09:00)
[2021-02-25] MEDS: DOCUSATE SODIUM 100 MG CAPSULE PO SCH ×2 (09:00→20:34)
[2021-02-25] MEDS: HEPARIN SODIUM,PORCINE 5,000 UNITS/ML VIAL SQ SCH (09:00)
[2021-02-25] MEDS ORDERED: SODIUM CHLORIDE 0.9% 1,000 ML ONE (09:23)
[2021-02-25 11:35] LABS: GLUCOMETER DEV NAME(LOC) 5S.1; GLUCOSE,POINT OF CARE 154 MG/DL (70-110)
[2021-02-25 12:15] VITALS: BP 108/54
[2021-02-25] MEDS ORDERED: FLUMAZENIL 0.1 MG/ML 5 ML VIAL IVP ONE (12:16)
[2021-02-25] MEDS ORDERED: FentaNYL CITRATE PF 100 MCG/2 ML VIAL ONE (12:16)
[2021-02-25] MEDS ORDERED: NALOXONE HCL 0.4 MG/ML VIAL ONE (12:16)
[2021-02-25] MEDS ORDERED: MIDAZOLAM HCL 2 MG/2 ML VIAL ONE ×2 (12:16→12:19)
[2021-02-25] MEDS ORDERED: MIDAZOLAM HCL 2 MG/2 ML VIAL IVP ONE (12:35)
[2021-02-25] MEDS ORDERED: FentaNYL CITRATE PF 100 MCG/2 ML VIAL IVP ONE (12:35)
[2021-02-25 12:44] VITALS: BP 123/55
[2021-02-25 12:45] LABS: GLUCOMETER DEV NAME(LOC) 5S.2B; GLUCOSE,POINT OF CARE 187 MG/DL (70-110)
[2021-02-25] MEDS ORDERED: GELATIN SPONGE,ABSORBABLE 12-7 MM TP ONE ×2 (12:52→13:20)
[2021-02-25] MEDS ORDERED: LIDOCAINE 1%/EPI 1:200,000/PF 10 ML VIAL ONE (12:52)
[2021-02-25 13:43] LABS: GLUCOMETER DEV NAME(LOC) 5N.1C; GLUCOSE,POINT OF CARE 163 MG/DL (70-110)
[2021-02-25 16:10] VITALS: BP 102/43
[2021-02-25 19:14] LABS: GLUCOMETER DEV NAME(LOC) 5S.1; GLUCOSE,POINT OF CARE 149 MG/DL (70-110)
[2021-02-25 20:08] VITALS: BP 100/46
[2021-02-25 21:28] LABS: GLUCOMETER DEV NAME(LOC) 5N.3; GLUCOSE,POINT OF CARE 124 MG/DL (70-110)
[2021-02-25] MEDS: LORazepam 2 MG/ML VIAL IVP PRN (23:03)
[2021-02-26 00:18] VITALS: BP 102/44
[2021-02-26] MEDS ORDERED: SODIUM CHLORIDE 0.9% IRRIG BTL 1,000 ML IRRIG ONE (04:24)
[2021-02-26 05:21] VITALS: BP 94/59
[2021-02-26] MEDS: PIPERACILLIN SODIUM/TAZOBACTAM 2.25 GM in DEXTROSE 5%-WATER 50 ML IV SCH ×3 (05:38→21:28)
[2021-02-26] MEDS ORDERED: SODIUM CHLORIDE 0.9% 2,000 ML ONE (07:41)
[2021-02-26 08:00] VITALS: BP 91/48
[2021-02-26 08:13] LABS: GLUCOMETER DEV NAME(LOC) 5S.2B; GLUCOSE,POINT OF CARE 121 MG/DL (70-110)
[2021-02-26 08:42] LABS: CALCIUM, TOTAL 8.2 mg/dL (8.8-10.5); CREATININE 4.35 mg/dL (0.60-1.30)
[2021-02-26] MEDS: LORazepam 2 MG/ML VIAL IVP PRN ×3 (09:05→21:27)
[2021-02-26] MEDS ORDERED: MIDODRINE HCL 5 MG TABLET NG ONE (10:30)
[2021-02-26 11:29] VITALS: BP 131/66
[2021-02-26] MEDS: FAMOTIDINE 20 MG TABLET PO SCH (11:39)
[2021-02-26] MEDS: ASPIRIN 81 MG CHEWABLE TABLET PO SCH (11:40)
[2021-02-26] MEDS: EPOETIN ALFA 10,000 UNITS/ML 2 ML VIAL SQ SCH (11:40)
[2021-02-26] MEDS: DOCUSATE SODIUM 100 MG CAPSULE PO SCH ×2 (11:59→21:28)
[2021-02-26 13:53] LABS: HEMATOCRIT 23.4 % (36-46); HEMOGLOBIN 7.6 g/dL (12.0-16.0); MEAN CORPUSCULAR HEMOGLOBIN 27.9 pg (26.0-34.0); MEAN CORPUSCULAR HGB CONC 32.7 G/dL (31.0-37.0); MEAN CORPUSCULAR VOLUME 85 fL (80-100); RED BLOOD CELL COUNT(AUTO) 2.74 MIL/uL (4.00-5.20); RED CELL DISTRIBUTION WIDTH 16.9 % (11.5-14.5)
[2021-02-26 14:37] LABS: PLATELET COUNT (AUTO) 97 K/uL (150-450); PLATELET MORPHOLOGY COMMENT LARGE PLTS PRESENT
[2021-02-26 14:39] LABS: BAND NEUTROPHILS % (MANUAL) 2 % (0-5); EOSINOPHILS % (MANUAL) 1 % (1-6); LYMPHOCYTES % (MANUAL) 14 % (22-44); MONOCYTES % (MANUAL) 11 % (2-9); SEGMENTED NEUTROPHILS % 72 % (40-70)
[2021-02-26 16:16] VITALS: BP 119/57
[2021-02-26 17:33] LABS: GLUCOMETER DEV NAME(LOC) 5S.2B; GLUCOSE,POINT OF CARE 96 MG/DL (70-110)
[2021-02-26 19:11] VITALS: BP 120/64
[2021-02-27 00:10] VITALS: BP 116/59
[2021-02-27 01:02] LABS: GLUCOMETER DEV NAME(LOC) 5S.2B; GLUCOSE,POINT OF CARE 135 MG/DL (70-110)
[2021-02-27 01:02] LABS: GLUCOMETER DEV NAME(LOC) 5S.2B; GLUCOSE,POINT OF CARE 109 MG/DL (70-110)
[2021-02-27] MEDS: LORazepam 2 MG/ML VIAL IVP PRN ×2 (04:10→15:23)
[2021-02-27 04:24] VITALS: BP 128/60
[2021-02-27] MEDS: PIPERACILLIN SODIUM/TAZOBACTAM 2.25 GM in DEXTROSE 5%-WATER 50 ML IV SCH ×3 (05:27→21:00)
[2021-02-27] MEDS ORDERED: SODIUM CHLORIDE 0.9% IRRIG BTL 1,000 ML IRRIG ONE (06:04)
[2021-02-27 06:48] LABS: GLUCOMETER DEV NAME(LOC) 5S.2B; GLUCOSE,POINT OF CARE 159 MG/DL (70-110)
[2021-02-27 08:10] VITALS: BP 97/43
[2021-02-27] MEDS: DOCUSATE SODIUM 100 MG CAPSULE PO SCH ×2 (08:27→21:00)
[2021-02-27 08:40] LABS: BILIRUBIN,TOTAL 7.8 mg/dL (0.1-1.0); CALCIUM, TOTAL 8.9 mg/dL (8.8-10.5); CREATININE 4.26 mg/dL (0.60-1.30); POTASSIUM 4.1 mmol/L (3.5-5.1); VANCOMYCIN,RANDOM 17.9 mcg/mL (25.0-50.0)
[2021-02-27] MEDS: FAMOTIDINE 20 MG TABLET PO SCH (08:48)
[2021-02-27] MEDS: ASPIRIN 81 MG CHEWABLE TABLET PO SCH (08:49)
[2021-02-27] MEDS ORDERED: LIDOCAINE 1%/EPI 1:200,000/PF 10 ML VIAL ONE (09:39)
[2021-02-27] MEDS ORDERED: MIDAZOLAM HCL 2 MG/2 ML VIAL ONE (09:39)
[2021-02-27] MEDS ORDERED: FLUMAZENIL 0.1 MG/ML 5 ML VIAL IVP ONE (09:39)
[2021-02-27] MEDS ORDERED: NALOXONE HCL 0.4 MG/ML VIAL ONE (09:39)
[2021-02-27] MEDS ORDERED: FentaNYL CITRATE PF 100 MCG/2 ML VIAL ONE (09:39)
[2021-02-27] MEDS ORDERED: HEPARIN SODIUM,PORCINE 1,000 UNITS/ML 10 ML VIAL ONE (09:40)
[2021-02-27] MEDS ORDERED: VANCOMYCIN HCL 1 GM/D5% WATER 200 ML IV ONE (10:00)
[2021-02-27] MEDS ORDERED: MIDAZOLAM HCL 2 MG/2 ML VIAL IVP ONE ×2 (10:35→10:55)
[2021-02-27] MEDS ORDERED: FentaNYL CITRATE PF 100 MCG/2 ML VIAL IVP ONE ×2 (10:35→10:55)
[2021-02-27 12:15] VITALS: BP 101/47
[2021-02-27] MEDS: INSULIN LISPRO 100 UNITS/ML SQ PRN ×3 (12:29→21:12)
[2021-02-27 16:00] VITALS: BP 95/50
[2021-02-27 18:00] LABS: GLUCOMETER DEV NAME(LOC) 5S.2B; GLUCOSE,POINT OF CARE 191 MG/DL (70-110)
[2021-02-27 20:16] VITALS: BP 96/45
[2021-02-27 20:27] LABS: GLUCOMETER DEV NAME(LOC) 5N.1C; GLUCOSE,POINT OF CARE 188 MG/DL (70-110)
[2021-02-27 23:57] LABS: GLUCOMETER DEV NAME(LOC) 5N.3; GLUCOSE,POINT OF CARE 163 MG/DL (70-110)
[2021-02-28] VITALS (7 sets, daily range): BP systolic 102–140; BP diastolic 50–61
[2021-02-28] MEDS: LORazepam 2 MG/ML VIAL IVP PRN ×2 (00:04→04:06)
[2021-02-28] MEDS ORDERED: SODIUM CHLORIDE 0.9% IRRIG BTL 1,000 ML IRRIG ONE (04:12)
[2021-02-28] MEDS ORDERED: SODIUM CHLORIDE 0.9% 250 ML IV ONE (04:12)
[2021-02-28] MEDS: PIPERACILLIN SODIUM/TAZOBACTAM 2.25 GM in DEXTROSE 5%-WATER 50 ML IV SCH ×3 (05:39→22:11)
[2021-02-28] MEDS: INSULIN LISPRO 100 UNITS/ML SQ PRN (06:33)
[2021-02-28] MEDS: ASPIRIN 81 MG CHEWABLE TABLET PO SCH (07:35)
[2021-02-28] MEDS: FAMOTIDINE 20 MG TABLET PO SCH (07:35)
[2021-02-28] MEDS: DOCUSATE SODIUM 100 MG CAPSULE PO SCH ×2 (07:35→20:59)
[2021-02-28] MEDS: EPOETIN ALFA 10,000 UNITS/ML 2 ML VIAL SQ SCH (07:35)
[2021-02-28 07:49] LABS: BILIRUBIN,DIRECT 7.2 mg/dL (0.00-0.20); BILIRUBIN,TOTAL 7.9 mg/dL (0.1-1.0); CALCIUM, TOTAL 9.3 mg/dL (8.8-10.5); CREATININE 5.35 mg/dL (0.60-1.30); POTASSIUM 3.9 mmol/L (3.5-5.1)
[2021-02-28] MEDS ORDERED: SODIUM CHLORIDE 0.9% 2,000 ML ONE (09:17)
[2021-02-28] MEDS ORDERED: ALBUTEROL SULFATE 2.5 MG/0.5 ML NEB SOLUTION NEB PRN (10:15)
[2021-02-28] MEDS: QUEtiapine FUMARATE 25 MG TABLET GT SCH ×2 (11:14→21:00)
[2021-02-28] MEDS ORDERED: ALBUMIN HUMAN 25%-12.5GM/50ML IV BOTTLE IV ONE (16:20)
[2021-02-28] MEDS ORDERED: HEPARIN SODIUM,PORCINE 1,000 UNITS/ML VIAL IVP ONE (16:20)
[2021-02-28] MEDS ORDERED: DiphenhydrAMINE HCL 50 MG/ML VIAL IM ONE (16:20)
[2021-02-28 17:50] LABS: GLUCOMETER DEV NAME(LOC) 5N.1C; GLUCOSE,POINT OF CARE 178 MG/DL (70-110)
[2021-02-28] MEDS: MORPHINE SULFATE 2 MG/ML SYRINGE IVP PRN (22:13)
[2021-03-01 03:42] VITALS: BP 112/54
[2021-03-01] MEDS: PIPERACILLIN SODIUM/TAZOBACTAM 2.25 GM in DEXTROSE 5%-WATER 50 ML IV SCH ×3 (06:20→22:09)
[2021-03-01] MEDS: INSULIN LISPRO 100 UNITS/ML SQ PRN ×3 (06:29→17:22)
[2021-03-01] MEDS: ASPIRIN 81 MG CHEWABLE TABLET PO SCH (07:25)
[2021-03-01] MEDS: FAMOTIDINE 20 MG TABLET PO SCH (07:26)
[2021-03-01] MEDS: QUEtiapine FUMARATE 25 MG TABLET GT SCH ×2 (07:26→22:10)
[2021-03-01] MEDS: DOCUSATE SODIUM 100 MG CAPSULE PO SCH ×2 (07:26→21:00)
[2021-03-01 08:10] VITALS: BP 121/56
[2021-03-01 10:00] VITALS: BP 99/45
[2021-03-01 10:44] LABS: HEMATOCRIT 24.4 % (36-46); HEMOGLOBIN 7.9 g/dL (12.0-16.0); MEAN CORPUSCULAR HEMOGLOBIN 28.1 pg (26.0-34.0); MEAN CORPUSCULAR HGB CONC 32.4 G/dL (31.0-37.0); MEAN CORPUSCULAR VOLUME 87 fL (80-100); PLATELET COUNT (AUTO) 100 K/uL (150-450); RED BLOOD CELL COUNT(AUTO) 2.81 MIL/uL (4.00-5.20); RED CELL DISTRIBUTION WIDTH 19.8 % (11.5-14.5)
[2021-03-01 11:16] LABS: BILIRUBIN,DIRECT 6.6 mg/dL (0.00-0.20); BILIRUBIN,TOTAL 8.6 mg/dL (0.1-1.0); CALCIUM, TOTAL 9.7 mg/dL (8.8-10.5); CREATININE 3.79 mg/dL (0.60-1.30); POTASSIUM 4.1 mmol/L (3.5-5.1)
[2021-03-01] MEDS: LORazepam 2 MG/ML VIAL IVP PRN (11:25)
[2021-03-01 11:31] VITALS: BP 124/76
[2021-03-01 11:54] LABS: BAND NEUTROPHILS % (MANUAL) 7 % (0-5); LYMPHOCYTES % (MANUAL) 19 % (22-44); MONOCYTES % (MANUAL) 2 % (2-9); SEGMENTED NEUTROPHILS % 72 % (40-70)
[2021-03-01 11:57] LABS: GLUCOMETER DEV NAME(LOC) 5N.3; GLUCOSE,POINT OF CARE 212 MG/DL (70-110)
[2021-03-01 11:58] LABS: GLUCOMETER DEV NAME(LOC) 5N.3; GLUCOSE,POINT OF CARE 173 MG/DL (70-110)
[2021-03-01 11:58] LABS: GLUCOMETER DEV NAME(LOC) 5N.3; GLUCOSE,POINT OF CARE 219 MG/DL (70-110)
[2021-03-01] MEDS ORDERED: HEPARIN SODIUM,PORCINE 1,000 UNITS/ML VIAL IVP ONE (14:43)
[2021-03-01 14:55] VITALS: BP 92/57
[2021-03-01 17:46] LABS: GLUCOMETER DEV NAME(LOC) 5S.2B; GLUCOSE,POINT OF CARE 219 MG/DL (70-110)
[2021-03-01 18:33] LABS: GLUCOMETER DEV NAME(LOC) 5S.1; GLUCOSE,POINT OF CARE 207 MG/DL (70-110)
[2021-03-01 20:31] VITALS: BP 116/64
[2021-03-02 00:04] LABS: GLUCOMETER DEV NAME(LOC) 5N.1C; GLUCOSE,POINT OF CARE 199 MG/DL (70-110)
[2021-03-02 00:04] LABS: GLUCOMETER DEV NAME(LOC) 5S.2B; GLUCOSE,POINT OF CARE 169 MG/DL (70-110)
[2021-03-02] MEDS: LORazepam 2 MG/ML VIAL IVP PRN ×2 (00:28→08:48)
[2021-03-02 05:07] VITALS: BP 105/55
[2021-03-02] MEDS: INSULIN LISPRO 100 UNITS/ML SQ PRN ×3 (05:41→17:41)
[2021-03-02] MEDS: PIPERACILLIN SODIUM/TAZOBACTAM 2.25 GM in DEXTROSE 5%-WATER 50 ML IV SCH ×2 (05:43→15:30)
[2021-03-02 07:06] LABS: HEMATOCRIT 22.4 % (36-46); HEMOGLOBIN 7.3 g/dL (12.0-16.0); MEAN CORPUSCULAR HEMOGLOBIN 28.2 pg (26.0-34.0); MEAN CORPUSCULAR HGB CONC 32.6 G/dL (31.0-37.0); MEAN CORPUSCULAR VOLUME 86 fL (80-100); RED BLOOD CELL COUNT(AUTO) 2.59 MIL/uL (4.00-5.20); RED CELL DISTRIBUTION WIDTH 20.1 % (11.5-14.5)
[2021-03-02 07:38] VITALS: BP 104/57
[2021-03-02 07:38] LABS: BILIRUBIN,DIRECT 7.3 mg/dL (0.00-0.20); CALCIUM, TOTAL 10.4 mg/dL (8.8-10.5); CREATININE 4.49 mg/dL (0.60-1.30); POTASSIUM 3.5 mmol/L (3.5-5.1)
[2021-03-02 07:49] LABS: VANCOMYCIN,RANDOM 19.6 mcg/mL (25.0-50.0)
[2021-03-02 08:23] LABS: GLUCOMETER DEV NAME(LOC) 5S.2B; GLUCOSE,POINT OF CARE 197 MG/DL (70-110)
[2021-03-02] MEDS: DOCUSATE SODIUM 100 MG CAPSULE PO SCH ×2 (09:00→21:00)
[2021-03-02 09:44] LABS: PLATELET COUNT (AUTO) 69 K/uL (150-450)
[2021-03-02 09:49] LABS: BAND NEUTROPHILS % (MANUAL) 13 % (0-5); BASOPHILS % (MANUAL) 1 % (0-2); EOSINOPHILS % (MANUAL) 2 % (1-6); LYMPHOCYTES % (MANUAL) 11 % (22-44); MONOCYTES % (MANUAL) 5 % (2-9); REACTIVE LYMPHOCYTES 2 % (0-0); SEGMENTED NEUTROPHILS % 66 % (40-70)
[2021-03-02] MEDS: EPOETIN ALFA 10,000 UNITS/ML 2 ML VIAL SQ SCH (10:01)
[2021-03-02] MEDS: FAMOTIDINE 20 MG TABLET PO SCH (10:01)
[2021-03-02] MEDS: ASPIRIN 81 MG CHEWABLE TABLET PO SCH (10:01)
[2021-03-02] MEDS: QUEtiapine FUMARATE 25 MG TABLET GT SCH ×2 (10:01→22:53)
[2021-03-02 11:42] VITALS: BP 101/48
[2021-03-02] MEDS: SOD FERRIC GLUC COMPLX/SUCROSE 125 MG in SODIUM CHLORIDE 0.9% 100 ML IV SCH (13:17)
[2021-03-02 16:00] VITALS: BP 95/54
[2021-03-02] MEDS ORDERED: VANCOMYCIN HCL 1 GM/D5% WATER 200 ML IV ONE (17:00)
[2021-03-02 22:10] LABS: GLUCOMETER DEV NAME(LOC) 5N.1C; GLUCOSE,POINT OF CARE 179 MG/DL (70-110)
[2021-03-02 22:10] LABS: GLUCOMETER DEV NAME(LOC) 5N.1C; GLUCOSE,POINT OF CARE 192 MG/DL (70-110)
[2021-03-02 23:36] VITALS: BP 116/56
[2021-03-03] VITALS (7 sets, daily range): BP systolic 96–118; BP diastolic 48–65
[2021-03-03] MEDS: INSULIN LISPRO 100 UNITS/ML SQ PRN ×5 (00:30→20:36)
[2021-03-03] MEDS: PIPERACILLIN SODIUM/TAZOBACTAM 2.25 GM in DEXTROSE 5%-WATER 50 ML IV SCH ×4 (01:12→22:05)
[2021-03-03 01:59] LABS: GLUCOMETER DEV NAME(LOC) 5S.2B; GLUCOSE,POINT OF CARE 177 MG/DL (70-110)
[2021-03-03] MEDS: MORPHINE SULFATE 2 MG/ML SYRINGE IVP PRN (06:21)
[2021-03-03 07:41] LABS: GLUCOMETER DEV NAME(LOC) 5N.1C; GLUCOSE,POINT OF CARE 192 MG/DL (70-110)
[2021-03-03] MEDS: DOCUSATE SODIUM 100 MG CAPSULE PO SCH ×2 (09:00→20:15)
[2021-03-03] MEDS: ASPIRIN 81 MG CHEWABLE TABLET PO SCH (09:27)
[2021-03-03] MEDS: FAMOTIDINE 20 MG TABLET PO SCH (09:28)
[2021-03-03] MEDS: QUEtiapine FUMARATE 25 MG TABLET GT SCH ×2 (09:28→20:15)
[2021-03-03 10:50] LABS: HEMATOCRIT 21.4 % (36-46); MEAN CORPUSCULAR HGB CONC 32.6 G/dL (31.0-37.0); MEAN CORPUSCULAR VOLUME 86 fL (80-100); PLATELET COUNT (AUTO) 56 K/uL (150-450); RED BLOOD CELL COUNT(AUTO) 2.49 MIL/uL (4.00-5.20); RED CELL DISTRIBUTION WIDTH 20.6 % (11.5-14.5)
[2021-03-03 11:26] LABS: ALBUMIN 1.2 g/dL (3.4-5.0); BILIRUBIN,TOTAL 8.6 mg/dL (0.1-1.0); CALCIUM, TOTAL 9.8 mg/dL (8.8-10.5); CREATININE 3.29 mg/dL (0.60-1.30); PHOSPHORUS 4.4 mg/dL (2.5-4.9); POTASSIUM 3.2 mmol/L (3.5-5.1); TOTAL PROTEIN, SERUM 5.7 g/dL (6.4-8.2)
[2021-03-03 11:27] LABS: GLUCOMETER DEV NAME(LOC) 5S.2B; GLUCOSE,POINT OF CARE 195 MG/DL (70-110)
[2021-03-03] MEDS ORDERED: HEPARIN SODIUM,PORCINE 1,000 UNITS/ML VIAL IVP ONE (11:56)
[2021-03-03] MEDS ORDERED: ALBUMIN HUMAN 25%-12.5GM/50ML IV BOTTLE IV ONE (11:56)
[2021-03-03] MEDS: SOD FERRIC GLUC COMPLX/SUCROSE 125 MG in SODIUM CHLORIDE 0.9% 100 ML IV SCH (12:34)
[2021-03-03 12:49] LABS: BAND NEUTROPHILS % (MANUAL) 13 % (0-5); LYMPHOCYTES % (MANUAL) 12 % (22-44); MONOCYTES % (MANUAL) 4 % (2-9); REACTIVE LYMPHOCYTES 4 % (0-0); SEGMENTED NEUTROPHILS % 67 % (40-70)
[2021-03-03] MEDS: LORazepam 2 MG/ML VIAL IVP PRN (17:19)
[2021-03-03 17:57] LABS: GLUCOMETER DEV NAME(LOC) 5S.2B; GLUCOSE,POINT OF CARE 227 MG/DL (70-110)
[2021-03-04 05:20] VITALS: BP 88/40
[2021-03-04 07:24] LABS: CHOL/HDL RATIO 28.3 (3.9-5.7)
== END 2021-03-04 11:50 | DRG 871 ==
LOC: EMS 16:38 → 5N 02-19 09:15 → 5S 02-21 17:25
PROVIDERS: ADMIT Internal Medicine; ATTEND Internal Medicine
PROC: 02HV33Z Insertion of Infusion Device into Superior Vena Cava, Percutaneous Approach (ICD-10-PCS; 2021-02-21)
PROC: B5181ZA Fluoroscopy of Superior Vena Cava using Low Osmolar Contrast, Guidance (ICD-10-PCS; 2021-02-21)
PROC: B548ZZA Ultrasonography of Superior Vena Cava, Guidance (ICD-10-PCS; 2021-02-21)
PROC: 5A1D70Z Performance of Urinary Filtration, Intermittent, Less than 6 Hours Per Day (ICD-10-PCS; 2021-02-21)
PROC: 30233N1 Transfusion of Nonautologous Red Blood Cells into Peripheral Vein, Percutaneous Approach (ICD-10-PCS; principal; 2021-02-22)
PROC: 5A1D70Z Performance of Urinary Filtration, Intermittent, Less than 6 Hours Per Day (ICD-10-PCS; 2021-02-22)
PROC: 5A1D70Z Performance of Urinary Filtration, Intermittent, Less than 6 Hours Per Day (ICD-10-PCS; 2021-02-23)
PROC: 0TB13ZX Excision of Left Kidney, Percutaneous Approach, Diagnostic (ICD-10-PCS; 2021-02-25)
PROC: 5A1D70Z Performance of Urinary Filtration, Intermittent, Less than 6 Hours Per Day (ICD-10-PCS; 2021-02-26)
PROC: 0JH63XZ Insertion of Tunneled Vascular Access Device into Chest Subcutaneous Tissue and Fascia, Percutaneous Approach (ICD-10-PCS; 2021-02-27)
PROC: 02HV33Z Insertion of Infusion Device into Superior Vena Cava, Percutaneous Approach (ICD-10-PCS; 2021-02-27)
PROC: B548ZZA Ultrasonography of Superior Vena Cava, Guidance (ICD-10-PCS; 2021-02-27)
PROC: B5181ZA Fluoroscopy of Superior Vena Cava using Low Osmolar Contrast, Guidance (ICD-10-PCS; 2021-02-27)
PROC: 5A1D70Z Performance of Urinary Filtration, Intermittent, Less than 6 Hours Per Day (ICD-10-PCS; 2021-02-28)
PROC: 5A1D70Z Performance of Urinary Filtration, Intermittent, Less than 6 Hours Per Day (ICD-10-PCS; 2021-03-02)
DX: A41.9 Sepsis, unspecified organism (principal); N17.0 Acute kidney failure with tubular necrosis; G92.8 Other toxic encephalopathy; J96.91 Respiratory failure, unspecified with hypoxia; N18.6 End stage renal disease; K85.90 Acute pancreatitis without necrosis or infection, unspecified; J69.0 Pneumonitis due to inhalation of food and vomit; E87.2 Acidosis; E87.0 Hyperosmolality and hypernatremia; D61.818 Other pancytopenia; I13.2 Hypertensive heart and chronic kidney disease with heart failure and with stage 5 chronic kidney disease, or end stage renal disease; I50.32 Chronic diastolic (congestive) heart failure; E44.0 Moderate protein-calorie malnutrition; E87.5 Hyperkalemia; E11.22 Type 2 diabetes mellitus with diabetic chronic kidney disease; F03.90 Unspecified dementia, unspecified severity, without behavioral disturbance, psychotic disturbance, mood disturbance, and anxiety; I35.0 Nonrheumatic aortic (valve) stenosis; K72.90 Hepatic failure, unspecified without coma; N26.9 Renal sclerosis, unspecified; K21.9 Gastro-esophageal reflux disease without esophagitis; Z20.822 Contact with and (suspected) exposure to COVID-19; K59.00 Constipation, unspecified; I95.9 Hypotension, unspecified; R34 Anuria and oliguria; R62.7 Adult failure to thrive; Z66 Do not resuscitate; E11.21 Type 2 diabetes mellitus with diabetic nephropathy; Z79.4 Long term (current) use of insulin; Z82.49 Family history of ischemic heart disease and other diseases of the circulatory system; Z85.3 Personal history of malignant neoplasm of breast; Z86.73 Personal history of transient ischemic attack (TIA), and cerebral infarction without residual deficits; Z87.442 Personal history of urinary calculi; Z90.11 Acquired absence of right breast and nipple; Z99.2 Dependence on renal dialysis; Z88.8 Allergy status to other drugs, medicaments and biological substances; Z88.2 Allergy status to sulfonamides; Z79.899 Other long term (current) drug therapy; Z68.34 Body mass index [BMI] 34.0-34.9, adult; Z90.49 Acquired absence of other specified parts of digestive tract
CPT/HCPCS: 36556; 36561; 50200; 51702; 70450; 71045; 74018; 74176; 74181; 76000; 76705; 76937; 77002; 80048; 80053; 80061; 80074; 80202; 81001; 81050; 82105; 82140; 82247; 82248; 82271; 82607; 82784; 82962; 83516; 83540; 83550; 83605; 83615; 83690; 83735; 83874; 84100; 84156; 84166; 84443; 85025; 85384; 85610; 85730; 86038; 86140; 86334; 86850; 86900; 86901; 86923; 87040; 87340; 88300; 89050; 92526; 92610; 93005; 94640; 99291; J0131; J0885; J1200; J1642; J1644; J1956; J2060; J2250; J2270; J2310; J2543; J2916; J3010; J3370; J3490; J7030; J7040; J7050; J7060; J7120; P9016; P9047; Q9967; 36415-L1; 36415-TC; J7613; U0003